=== PATIENT | female | born 1995 | race Caucasian/White ===

== ENCOUNTER 2024-11-17 05:26 | Observation (INO) ==
--- NOTE | 2024-11-08 14:45 | Anesthesiology Consultation ---
Date of Service November 08, 2024 Assessment & Plan (1) Encounter for pre-operative examination: - check urine test STAT am DOS. - Case discussed in detail with Dr. Lopez who advised patient is acceptable to proceed and no further evaluation or testing will be needed prior to surgery from his standpoint. - Per agency director on 11/08/24: No known infectious disease contacts, current infectious disease symptoms in past 10 days or COVID positive test result in the past 30 days. Chart Review Chart Review: Acceptable Risk for Surgery and Patient NOT seen in Pre Admission Testing History Surgery Operation Date: 11/17/24 07:00 Proposed Procedures p Total Laparoscopic Hysterectomy, Bilateral Salpingectomy and Cystoscopy, Possible Laparotomy - Al Mujica MD Height/Weight Height: 5 ft 4 in Weight: 56.699 kg Allergies Allergy/AdvReac Type Severity Reaction Status Date / Time latex Allergy Intermediate Blister/ Verified 11/08/24 14:00 bleeding acetaminophen [From Tylenol] Allergy Unknown Worsen Verified 11/08/24 13:59 symptoms Medications Home Medications Medication Instructions Recorded Confirmed Last Taken albuterol sulfate 90 mcg/actuation 2 puff inhalation DIRECTED PRN 01/26/20 11/08/24 Unknown aerosol inhaler Shortness Of Breath Or Wheezing doxycycline hyclate 50 mg capsule 100 mg PO DAILY 01/26/20 11/08/24 Unknown buspirone 15 mg tablet 15 mg PO BID 11/08/24 11/08/24 Unknown clobetasol 0.05 % topical cream 1 applic topical BID 11/08/24 11/08/24 Unknown dicyclomine 10 mg capsule 10 mg PO QID PRN Abdominal 11/08/24 11/08/24 Unknown Discomfort ibuprofen 800 mg tablet 800 mg PO Q6H PRN Pain 11/08/24 11/08/24 Unknown loratadine 10 mg tablet 10 mg PO DAILY PRN Congestion 11/08/24 11/08/24 Unknown mometasone 50 mcg/actuation nasal 2 spray intranasal DAILY 11/08/24 11/08/24 Unknown spray olopatadine 0.1 % eye drops 1 drp ophthalmic (eye) BID 11/08/24 11/08/24 Unknown ondansetron HCl 4 mg tablet 4 mg PO Q6H PRN Nausea 11/08/24 11/08/24 Unknown pantoprazole 40 mg tablet,delayed 40 mg PO QAM 11/08/24 11/08/24 Unknown release pseudoephedrine-ibuprofen 30 1 tab PO Q4H PRN Pain 11/08/24 11/08/24 Unknown mg-200 mg tablet (Advil Cold and Sinus) rizatriptan 10 mg tablet 10 mg PO UD PRN Migraine Headache 11/08/24 11/08/24 Unknown testosterone 1.62 % (20.25 mg/1.25 2 packet transdermal DAILY 11/08/24 11/08/24 Unknown gram) transdermal gel packet (AndroGel) Past Medical History Medical History GERD (gastroesophageal reflux disease) History of anemia Hx of seasonal allergies prn inh for this, not asthma Migraine Palpitations on occasion POTS (postural orthostatic tachycardia syndrome) "possible" no formal testing, pcp aware of symptoms of dizziness when going from sitting to standing Sleep apnea no formal testing, does have issues (on occasion) "gasping for air" in sleep Past Surgical History Surgical History No history of previous surgery Social History Smoking Status: Never smoker Do You Dip or Chew Tobacco: No Hx Alcohol Use: No Hx Substance Use: No substance use type: does not use
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
--- OUTSIDE RECORDS SUMMARY | 2024-11-17 05:54 | External Medical Summary | Summary of Care ---
Author Name Unknown Organization [facility] Address [address] [place] [address] Phone [phone] Care Team Providers Care General Office Worker Name Role Phone Ari Atkinson MD Primary Care Provider + Encounter Details Date Type Department Care Team (Late st Contact Info) Description 11/13/2024 Orders Only Outcomes Research Department [address] [place] [address] Megan Steward CHRA [employer] [facility] Other*[id number] Allergies Active Allergy Reactions Criticality Noted Date Comments Egg-Derived Products Low 02/10/2019 Upset stomach, no anaphylaxis Lactose 04/04/2019 Allergic to another ingredient in dairy products Latex 08/30/2023 Other Allergy (See Comments) Medium 04/08/2022 [place] Fragrances, grass Acetaminophen 02/10/2019 Feels makes his pain worse generally. documented as of this encounter (statuses as of 11/13/2024) Medications Loratadine 10 MG Oral Tablet (Claritin) [...] (stomach pain/cramps). For abdominal pain 120 Capsule 11 12/14/19 24 Active Ondansetron HCl 4 MG Oral Tablet (Zofran)Indication s:Abdominal pain, generalized Take 1 Tablet by mouth every 8 hours as needed for Nausea. 30 Tablet 5 12/14/19 24 Active Diclofenac Sodium 1 % External Gel (Voltaren)Indicati ons:Multiple joint pain Apply topically to affected area 4 times a day. Apply to knees. 4g. 300 g 12/14/19 24 Active Doxycycline Hyclate 100 MG Oral Capsule Take 1 Capsule by mouth in the morning. 30 Capsule 03/07/20 24 Active Rizatriptan Benzoate 10 MG Oral Tablet Disintegrating (Maxalt-ANDROID ARCHITECT) Take 1 Tablet by mouth as needed for Migraine. May repeat in 2 hours if needed 10 Tablet 05/18/20 24 Active busPIRone HCl 15 MG Oral Tablet (Buspar)Indication s:KERRI (generalized anxiety disorder) TAKE 1 TABLET BY MOUTH IN THE MORNING AND BEFORE BEDTIME 60 Tablet 5 06/01/20 24 Active Famotidine 20 MG Oral Tablet (Pepcid) Take 1 Tablet by mouth in the morning and 1 Tablet before bedtime. 60 Tablet 06/19/20 24 Active Additional Information Patient not taking.Reported on 10/30/2024 Pantoprazole Sodium 40 MG Oral Tablet Delayed Release (Protonix)Indicati ons:Gastroesophage al reflux disease without esophagitis Take 1 Tablet by mouth in the morning. 30 Tablet 11 06/20/20 24 Active Benzoyl Peroxide 10 % External LiquidIndications: Acne vulgaris Apply as needed daily to breakouts on face/upper body 148 g 3 07/17/20 24 Active Clindamycin Phosphate 1 % External Lotion Apply to face, chest and back twice a day 60 mL 07/17/20 24 Active Testosterone 20.25 MG/ACT (1.62%) Transdermal Gel (AndroGel Pump)Indications:F kkeka-ut-azay transgender person PLACE 2 PUMP TOPICALLY ON [...] the night before surgery 300 mL 10/30/19 25 Active documented as of this encounter (statuses as of 11/13/2024) Active Problems Problem Noted Date Diagnosed Date [...] of recurrent major depressive d isorder 02/10/2019 Igtfjb-ic-linr transgender person 02/10/2019 Well adult exam 02/10/2019 Overview (12/08/2023): 12/11 EMG RUE WNL 09/[address] Luiza Ayala. 04/10 -EMG RUE Normal study. There is no electrodiagnostic evidence of a median or ulnar neuropathy, polyneuropathy, plexopathy, or cervical radiculopathy in the right upper extremity. 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 No psychiatry. Had bad experiences with [place] [facility]. '23 stopped therapy [facility]. Left arm/leg mottled since , worse in cold, inc calf circ on left. Chronic rhinitis 08/11/2015 Depression with anxiety 08/11/2015 Malocclusion 07/21/2014 Deliberate self-cutting 07/21/2014 Generalized anxiety disorder 07/18/2014 Idiopathic scoliosis 05/05/2013 documented as of this encounter (statuses as of 11/13/2024) Resolved Problems Problem Noted Date Diagnosed Date [...] as of this encounter (statuses as of 11/13/2024) Immunizations Name Administration Dates Next Due COVID-19 mRNA, LNP-s, No Pre serve, 2-Dose Series ([employer]) 09/24/2021,12/28/2020,12/14/2020 COVID-19, MRNA-LNP, PF, 30 M CG/0.3 mL, 12 YRS AND ABOVE, IM (PFIZER-Comirnaty) 08/09/2024 DTaP Dipth/Tet/Acell Pertussis (Infanrix), Peds 07/06/2003,09/26/1998,01/07/1998,10/26 HIB PRP-OMP, 3 dose (Pedvax) 09/26/1998,01/07/19 98,1997 HPV Vaccine, 4-Valent 05/05/2013 HPV Vaccine, 9-Valent 07/23/2019,02/10/2019 Hepatitis A, Ped/Adol., 18 y ear and below, 2-Dose 07/18/2014,05/05/2013 Hepatitis B, 0-19 yrs 09/26/1998,1997,12/0 02/1997 IPV - Polio Virus Vaccine (Inact) 07/06/2003 [...] 08/22/2024 Does the household have a re gular source of income? 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 Not on file Not on f ile Not on file documented as of this encounter Plan of Treatment Upcoming Encounters Date Type Department Care Team (Late st Contact Info) Description 11/29/2024 4:00 PM EDT Office Visit Allergy[facility]ology [facility] [address] [place] [address] Paola Talley PA-C [address] [place] [address] 12/05/2024 4:40 PM EDT Office Visit [facility] [address] [place] [address] Ari Atkinson MD [address] [place] [address] 12/28/2024 11:45 AM EDT Office Visit Gynecology/Obstetrics [facility] [address] [place] [address] Al Mujica MD [address] [place] [address] 03/06/2025 5:40 PM EDT Office Visit [facility] [address] [place] [address] Ari Atkinson MD [address] [place] [address] 06/05/2025 5:40 PM EDT Office Visit [facility] [address] [place] [address] Ari Atkinson MD [address] [place] [address] 09/04/2025 5:40 PM EST Office Visit [facility] [address] [place] [address] Ari Atkinson MD [address] [place] [address] Scheduled Orders Name Type Priority Associated Diagnoses Orde r Schedule MYCODE SUBSEQUENT ADULT Lab Routine [facility] Other*[id number] Every 6 Months for 2 Occurrences starting 11/13/2024 until 12/03/2025 Health Maintenance Due Date Last Done Comments [...] Not on filedocumented as of this encounter Visit Diagnoses Diagnosis [facility] Other*[id number] documented in this encounter Care Teams General Office Worker Relationship Specialty Start Date End Date Ari Atkinson MD [address] [place] [address] PCP - General Family Medicine 02/10/19 documented as of this encounter
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
--- OUTSIDE RECORDS SUMMARY | 2024-11-17 05:55 | External Medical Summary | Summary of Care ---
Author Name Unknown Organization [facility] Address [address] [place] [address] Phone [phone] Care Team Providers Care Automotive Parts Clerk Name Role Phone Ari Atkinson MD Primary Care Provider + Encounter Details Date Type Department Care Team (Late st Contact Info) Description 10/09/2024 Population Health External Data Unspecified Department Allergies Active Allergy Reactions Criticality Noted Date Comments Egg-Derived Products Low 02/10/2019 Upset stomach, no anaphylaxis Lactose 04/04/2019 Allergic to another ingredient in dairy products Latex 08/30/2023 Other Allergy (See Comments) Medium 04/08/2022 [place] Fragrances, grass Acetaminophen 02/10/2019 Feels makes his pain worse generally. documented as of this encounter (statuses as of 10/09/2024) Medications Loratadine 10 MG Oral Tablet (Claritin) Take by mouth 1 Tablet daily as needed for Rhinitis. for allergies. 30 Tablet 11/05/19 22 Active Advil Allergy Sinus 2-30-200 [...] day. Apply to knees. 4g. 300 g 5 12/14/19 24 Active Doxycycline Hyclate 100 MG Oral Capsule Take 1 Capsule by mouth in the morning. 30 Capsule 11 03/07/20 24 Active Rizatriptan Benzoate 10 MG Oral Tablet Disintegrating (Maxalt-GROMMET MACHINE OPERATOR) Take 1 Tablet by mouth as needed [...] back twice a day 60 mL 3 07/17/20 24 Active Testosterone 20.25 MG/ACT (1.62%) Transdermal Gel (AndroGel Pump)Indications:F jixsv-[id number] transgender person PLACE 2 PUMP TOPICALLY ON [...] food for pain 30 Tablet 11 08/29/20 Active Olopatadine HCl 0.1 % Ophthalmic SolutionIndication s:Allergic conjunctivitis, bilateral Instill 1 Drop into both eyes 2 times a day as needed for Itching. In affected eye(s) for allergic eyes 5 mL 11 08/29/20 Active Mometasone Furoate 50 MCG/ACT Nasal Suspension Administer 2 Sprays into each nostril in the morning. 51 g 3 08/31/20 Active documented as of this encounter (statuses as of 10/09/2024) Active Problems Problem Noted Date Diagnosed Date [...] of recurrent major depressive d isorder 02/10/2019 [id number]-[id number] transgender person 02/10/2019 Well adult exam 02/10/2019 Overview (12/08/2023): 12/11 EMG RUE WNL 09/[address] Luiza Ayala. 04/10 -EMG RUE Normal study. There is no electrodiagnostic evidence of a median or ulnar neuropathy, polyneuropathy, plexopathy, or cervical radiculopathy in the right upper extremity. [facility] Counselor BIW. Case mgmt weekly. No psychiatry. Had bad experiences with [facility]. '23 stopped therapy [facility]. Left arm/leg mottled since , worse in cold, inc calf circ on left. 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 Not on file Not on f ile Not on file documented as of this encounter Plan of Treatment Upcoming Encounters Date Type Department Care Team (Late st Contact Info) Description 10/30/2024 3:45 PM EST Office Visit Gynecology/Obstetrics [facility] [address] [address] Al Mujica MD [address] [place] [address] 11/29/2024 4:00 PM EDT Office [facility] [place] [address] [place] [address] Paola Talley PA-C [address] [place] [address] 12/05/2024 4:40 PM EDT Office Visit Family Practice [facility] [address] [address] Ari Atkinson MD [address] [place] [address] 03/06/2025 5:40 PM EDT Office Visit [facility] [address] [place] [address] Ari Atkinson MD [address] [place] [address] 05/15/2025 3:30 PM EDT Office Visit Neurology [facility] [address] [place] [address] Ana Gilbert PA-C [address] [place] [address] 06/05/2025 5:40 PM EDT Office [facility] [place] [address] Ari Atkinson MD 132 [facility] [place] [address] 09/04/2025 5:40 PM EST Office [facility] [address] [facility] [place] [address] Ari Atkinson MD [address] [facility] [place] [address] Health Maintenance Due Date Last Done Comments [...] filedocumented as of this encounter Care Teams Automotive Parts Clerk Relationship Specialty Start Date End Date Ari Atkinson MD [address] [place] [address] PCP - General Family Medicine 02/10/19 documented as of this encounter
--- OUTSIDE RECORDS SUMMARY | 2024-11-17 05:55 | External Medical Summary | Summary of Care ---
Author Name Unknown Organization [facility] Address [address] [place] [address] Phone [phone] Care Team Providers Care Briquette Machine Operator Name Role Phone Ari Atkinson MD Primary Care Provider + Reason for Visit * Reason Onset Date Comments Appointment 10/05/2024 Post op Encounter Details Date Type Department Care Team (Late st Contact Info) Description 10/05/2024 Telephone Gynecology/Obstetrics [facility] [address] [place] [address] Al Mujica MD [address] [place] [address] Appointment (Post op) Allergies Active Allergy Reactions Criticality Noted Date Comments Egg-Derived Products Low 02/10/2019 Upset stomach, no anaphylaxis Lactose 04/04/2019 Allergic to another ingredient in dairy products Latex 08/30/2023 Other Allergy (See Comments) Medium 04/08/2022 [place] Fragrances, grass Acetaminophen 02/10/2019 Feels makes his pain worse generally. documented as of this encounter (statuses as of 10/05/2024) Medications Loratadine 10 MG Oral Tablet (Claritin) [...] Rizatriptan Benzoate 10 MG Oral Tablet Disintegrating (Maxalt-IT MANAGER) Take 1 Tablet by mouth as needed [...] 20.25 MG/ACT (1.62%) Transdermal Gel (AndroGel Pump)Indications:F ppocv-is-dcdv transgender person PLACE 2 PUMP TOPICALLY ON [...] spot on chest) 15 g 1 08/29/20 Active Ibuprofen 800 MG Oral Tablet (Motrin) [...] affected eye(s) for allergic eyes 5 mL 08/29/20 Active Mometasone Furoate 50 MCG/ACT Nasal Suspension Administer 2 Sprays into each nostril in the morning. 51 g 3 08/31/20 Active documented as of this encounter (statuses as of 10/05/2024) Active Problems Problem Noted Date Diagnosed Date [...] of recurrent major depressive d isorder 02/10/2019 Oycscy-nq-cdgn transgender person 02/10/2019 Well adult exam 02/10/2019 Overview (12/08/2023): 12/11 EMG RUE WNL 09/[address] Luiza Ayala. 04/10 -EMG RUE Normal study. There is no electrodiagnostic evidence of a median or ulnar neuropathy, polyneuropathy, plexopathy, or cervical radiculopathy in the right upper extremity. 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 No psychiatry. Had bad experiences with [facility]. ' stopped therapy [facility]. Left arm/leg mottled since , worse in cold, inc calf circ on left. Chronic rhinitis 08/11/2015 Depression with anxiety 08/11/2015 Malocclusion 07/21/2014 Deliberate self-cutting 07/21/2014 Generalized anxiety disorder 07/18/2014 Idiopathic scoliosis 05/05/2013 documented as of this encounter (statuses as of 10/05/2024) Resolved Problems Problem Noted Date Diagnosed Date [...] as of this encounter (statuses as of 10/05/2024) Immunizations Name Administration Dates Next Due COVID-19 mRNA, LNP-s, No Pre serve, 2-Dose Series ([place]) 09/24/2021,12/28/2020,12/14/2020 COVID-19, MRNA-LNP, PF, 30 M CG/0.3 mL, 12 YRS AND ABOVE, IM [facility] 08/09/2024 DTaP Dipth/Tet/Acell Pertussis (Infanrix), Peds 07/06/2003,09/26/1998,01/07/1998,10/26 [...] Job Start Date Job End Date [employer]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 Not on file Not on f ile Not on file documented as of this encounter Miscellaneous Notes * Telephone Encounter - Valerie Moeller OSA - 10/05/2024 10:42 AM EST I do not see an appointment that is cancelled besides the one that was immediately rescheduled withthe patient. Will talk to the patient when they are in for their pre-op. * Telephone Encounter - Bina Pandey OSA - 10/05/2024 10:17 AM EST Pt called to reschedule her canceled post op appt. Please call pt, nothing is searching until 12/25. Please advise. Thank you, documented in this encounter Plan of Treatment Upcoming Encounters Date Type Department Care Team (Late st Contact Info) Description 10/30/2024 3:45 PM EST Office Visit Gynecology/Obstetrics [facility] [address] [place] [address] Al Mujica MD [address] [place] [address] 11/29/2024 4:00 PM EDT Office Visit Allergy/Immunology [facility] [address] [facility] [place] [address] Paola Talley PA-C 200 [facility] [place] [address] 12/05/2024 3:15 PM EDT Office Visit Gynecology/Obstetrics [facility] [address] [place] [address] Al Mujica MD [address] [place] [address] 12/05/2024 4:40 PM EDT Office Visit [facility] [address] [place] [address] Ari Atkinson MD [address] [place] [address] 03/06/2025 5:40 PM EDT Office Visit [facility] [address] [place] [address] Ari Atkinson MD [address] [place] [address] 05/15/2025 3:30 PM EDT Office Visit Neurology [facility] [address] [place] [address] Ana Gilbert PA-C [address] [place] [address] 06/05/2025 5:40 PM EDT Office Visit [facility] [address] [facility] [place] [address] Ari Atkinson MD [address] [facility] [place] [address] 09/04/2025 5:40 PM EST Office Visit [facility] [address] [facility] [place] [address] Ari Atkinson MD [facility] [place] [address] Health Maintenance Due Date Last Done Comments [...] filedocumented as of this encounter Care Teams Briquette Machine Operator Relationship Specialty Start Date End Date Ari Atkinson MD [address] [place] [address] PCP - General Family Medicine 02/10/19 documented as of this encounter
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
--- OUTSIDE RECORDS SUMMARY | 2024-11-17 05:55 | External Medical Summary ---
Author Name Unknown Address Unknown Organization [id number]:[facility] - [address] [place] [address] Laboratory Report Ordering Provider Test Date Status GINGER BRANTLEY 10/30/2024 16:20:30 Final The above reference range is based on the legal sex of the patient only. Results should be interpreted together with patient's sex at , gender identity, and clinical context. Observation Date Value Abnormality Reference (Units ) Status Testosterone [Mass/volume] in Serum or Plasma 10/30/2024 16:20:30 347.9 Above high normal 2.9-48.0 (ng/dL) Final Performing Location [facility] - [address] [place] [address]
--- OUTSIDE RECORDS SUMMARY | 2024-11-17 05:55 | External Medical Summary | Summary of Care ---
Author Name Unknown Organization [facility] Address [address] [place] [address] Phone [phone] Care Team Providers Care Wood Boring Machine Operator Name Role Phone Ari Atkinson MD Primary Care Provider + Reason for Visit * Reason Onset Date Comments FYI 08/31/2024 Encounter Details Date Type Department Care Team (Late st Contact Info) Description 08/31/2024 Telephone Family Practice [facility] [address] [place] [address] Ari Atkinson MD [address] [place] [place] [address] FYI Allergies Active Allergy Reactions Criticality Noted Date Comments Egg-Derived Products Low 02/10/2019 Upset stomach, no anaphylaxis Lactose 04/04/2019 Allergic to another ingredient in dairy products Latex 08/30/2023 Other Allergy (See Comments) Medium 04/08/2022 [place] Fragrances, grass Acetaminophen 02/10/2019 Feels makes his [...] Rizatriptan Benzoate 10 MG Oral Tablet Disintegrating (Maxalt-BATTERY FILLER) Take 1 Tablet by mouth as needed [...] 20.25 MG/ACT (1.62%) Transdermal Gel (AndroGel Pump)Indications:F ocudv-se-vmob transgender person PLACE 2 PUMP TOPICALLY ON [...] of recurrent major depressive d isorder 02/10/2019 Ikndke-kg-cumq transgender person 02/10/2019 Well adult exam 02/10/2019 Overview (12/08/2023): 12/11 EMG RUE WNL 09/[address] Luiza Ayala. 04/10 -EMG RUE Normal study. There is no electrodiagnostic evidence of a median or ulnar neuropathy, polyneuropathy, plexopathy, or cervical radiculopathy in the right upper extremity. [facility] Counselor BIW. Case mgmt weekly. No psychiatry. Had bad experiences with [facility]. '23 stopped therapy [facility]. 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 Not on file Not on f ile Not on file documented as of this encounter Miscellaneous Notes * Telephone Encounter - Stephanie Calle OSA - 08/31/2024 1:03 PM EST pt called requesting to talk to office's delicatessen department manager regarding paperwork that he is going to chart picker. He states he has questions about it. Attempted to transfer to front maker lockstitch at the office, however was unsuccessful. Pt states his mom would be picking up the letter for him d/t transportation issues. He wanted to know if that is okay. He said mother's name is Domi Santiago and she will be stopping by the office in the next 2 hours. documented in this encounter Plan of Treatment Upcoming Encounters Date Type Department Care Team (Late st Contact Info) Description 08/31/2024 3:00 PM EST Office Visit Allergy[facility]ology [facility] [address] [place] [address] Bruce Freeman MD 200 [facility] [place] [address] 12/05/2024 4:40 PM EDT Office Visit [facility] [address] [place] [address] Ari Atkinson MD [address] [place] [address] 03/06/2025 5:40 PM EDT Office Visit [facility] [address] [place] [address] Ari Atkinson MD [address] [place] [address] 05/15/2025 3:30 PM EDT Office Visit Neurology [facility] [address] [facility] [place] [address] Ana Gilbert PA-C [address] [place] [address] 06/05/2025 5:40 PM EDT Office Visit [facility] [address] [address] Ari Atkinson MD [address] [place] [address] 09/04/2025 5:40 PM EST Office Visit [facility] [address] [place] [address] Ari Atkinson MD [address] [place] [address] Health Maintenance Due Date Last Done Comments [...] filedocumented as of this encounter Care Teams Wood Boring Machine Operator Relationship Specialty Start Date End Date Ari Atkinson MD [address] [place] [address] PCP - General Family Medicine 02/10/19 documented as of this encounter
--- OUTSIDE RECORDS SUMMARY | 2024-11-17 05:55 | External Medical Summary | Summary of Care ---
Author Name Unknown Organization [facility] Address [address] [place] [address] Phone [phone] Care Team Providers Care Dairy Farm Supervisor Name Role Phone Ari Atkinson MD Primary Care Provider + Reason for Visit * Reason Onset Date Comments Other 09/05/2024 Encounter Details Date Type Department Care Team (Late st Contact Info) Description 09/05/2024 Telephone Gynecology/Obstetrics [facility] [address] [place] [address] Services, Scheduling [address] [place] [address] Other Allergies Active Allergy Reactions Criticality Noted Date Comments Egg-Derived Products Low 02/10/2019 Upset stomach, no anaphylaxis Lactose 04/04/2019 Allergic to another ingredient in dairy products Latex 08/30/2023 Other Allergy (See Comments) Medium 04/08/2022 [place] Fragrances, grass Acetaminophen 02/10/2019 Feels makes his pain worse generally. documented as of this encounter (statuses as of 09/11/2024) Medications Loratadine 10 MG Oral Tablet (Claritin) [...] Rizatriptan Benzoate 10 MG Oral Tablet Disintegrating (Maxalt-HOME PLANNING CONSULTANT SALESPERSON) Take 1 Tablet by mouth as needed [...] 20.25 MG/ACT (1.62%) Transdermal Gel (AndroGel Pump)Indications:F zzwma-wl-ozni transgender person PLACE 2 PUMP TOPICALLY ON THE SKIN IN THE MORNING. APPLY TO SHOULDER, OR CHEST OR BACK 75 g 08/09/20 24 Active Albuterol Sulfate HFA 108 [...] as of this encounter (statuses as of 09/11/2024) Active Problems Problem Noted Date Diagnosed Date [...] of recurrent major depressive d isorder 02/10/2019 Tcxvlz-cz-rvhp transgender person 02/10/2019 Well adult exam 02/10/2019 Overview (12/08/2023): 12/11 EMG RUE WNL 09/[address] Luiza Ayala. 04/10 -EMG RUE Normal study. There is no electrodiagnostic evidence of a median or ulnar neuropathy, polyneuropathy, plexopathy, or cervical radiculopathy in the right upper extremity. [facility] Counselor BIW. Case mgmt weekly. No psychiatry. Had bad experiences with [facility]. '23 stopped therapy [facility]. Left arm/leg mottled since , worse in cold, inc calf circ on left. Chronic rhinitis 08/11/2015 Depression with anxiety 08/11/2015 Malocclusion 07/21/2014 Deliberate self-cutting 07/21/2014 Generalized anxiety disorder 07/18/2014 Idiopathic scoliosis 05/05/2013 documented as of this encounter (statuses as of 09/11/2024) Resolved Problems Problem Noted Date Diagnosed Date [...] as of this encounter (statuses as of 09/11/2024) Immunizations Name Administration Dates Next Due COVID-19 mRNA, LNP-s, No Pre serve, 2-Dose Series ([employer]) 09/24/2021,12/28/2020,12/14/2020 COVID-19, MRNA-LNP, PF, 30 M CG/0.3 mL, 12 YRS AND ABOVE, IM ([facility]) 08/09/2024 DTaP Dipth/Tet/Acell Pertussis (Infanrix), Peds 07/06/2003,09/26/1998,01/07/1998,10/26 [...] Job Start Date Job End Date [employer]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 Not on file Not on f ile Not on file documented as of this encounter Miscellaneous Notes * Telephone Encounter - Lucia Pryor OSA - 09/11/2024 2:47 PM EST Pt scheduled. * Telephone Encounter - Diandra Alaniz OSA - 09/05/2024 1:56 PM EST Pt called stating they would like to receive a call back from OR whirley operator in regards to completinga hysterectomy. Pt was to be contacted to have this scheduled but still has not heard from whirley operator at this time. Pt was connected to OR line to leave a voicemail for a call back. Please contact patient at [phone] Thank you, Diandra Alaniz [employer] Secretary [facility] Scheduling documented in this encounter Plan of Treatment Upcoming Encounters Date Type Department Care Team (Late st Contact Info) Description 10/30/2024 3:45 PM EST Office Visit Gynecology/Obstetrics [facility] [address] [address] Al Mujica MD [address] [place] [address] 11/29/2024 4:00 PM EDT Office Visit Allergy/Immunology [facility] [address] [place] [address] Paola Talley PA-C [address] [place] [address] 12/05/2024 3:15 PM EDT Office Visit Gynecology/Obstetrics [facility] [address] [place] [address] Al Mujica MD [address] [place] [address] 12/05/2024 4:40 PM EDT Office Visit [facility] [address] [place] [address] Ari Atkinson MD [address] [place] [address] 03/06/2025 5:40 PM EDT Office Visit [facility] [address] [place] [address] Ari Atkinson MD [address] [place] [address] 05/15/2025 3:30 PM EDT Office Visit Neurology [facility] [address] [place] [address] Ana Gilbert PA-C [address] [place] [address] 06/05/2025 5:40 PM EDT Office Visit [facility] [address] [place] [address] Ari Atkinson MD [address] [place] [address] 09/04/2025 5:40 PM EST Office Visit [facility] [address] [place] [address] Ari Atkinson MD [address] [place] [address] Health Maintenance Due Date Last Done Comments Hepatitis C Screening 2015 Pneumococcal Vaccine: Pediat rics (0 to 5 Years) and At-Risk Patients (6 to 64 Years) (1 of 2 - PCV) 2016 [...] filedocumented as of this encounter Care Teams Dairy Farm Supervisor Relationship Specialty Start Date End Date Ari Atkinson MD [address] [place] [address] PCP - General Family Medicine 02/10/19 documented as of this encounter
--- OUTSIDE RECORDS SUMMARY | 2024-11-17 05:55 | External Medical Summary | Summary of Care ---
Author Name Unknown Organization [facility] Address [address] [place] [address] Phone [phone] Care Team Providers Care Expanding Machine Operator Name Role Phone Ari Atkinson MD Primary Care Provider + Reason for Visit * Reason Comments Outpatient Testing Encounter Details Date Type Department Care Team (Late st Contact Info) Description 10/30/2024 4:30 PM EST Laboratory [facility] [address] [place] [address] [facility] [address] [place] [address] Pdzcvq-le-hxtc transgender person Allergies Active Allergy Reactions Criticality Noted Date Comments Egg-Derived Products Low 02/10/2019 Upset stomach, no anaphylaxis Lactose 04/04/2019 Allergic to another ingredient in dairy products Latex 08/30/2023 Other Allergy (See Comments) Medium 04/08/2022 [place] Fragrances, grass Acetaminophen 02/10/2019 Feels makes his [...] Rizatriptan Benzoate 10 MG Oral Tablet Disintegrating (Maxalt-CHAIN MAKER LOOM CONTROL) Take 1 Tablet by mouth as needed [...] 20.25 MG/ACT (1.62%) Transdermal Gel (AndroGel Pump)Indications:F pogld-is-okqn transgender person PLACE 2 PUMP TOPICALLY ON [...] of recurrent major depressive d isorder 02/10/2019 Dzovdj-ru-odds transgender person 02/10/2019 Well adult exam 02/10/2019 Overview (12/08/2023): 12/11 EMG RUE WNL 09/[address] Luiza Ayala. 04/10 -EMG RUE Normal study. There is no electrodiagnostic evidence of a median or ulnar neuropathy, polyneuropathy, plexopathy, or cervical radiculopathy in the right upper extremity. 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 No psychiatry. Had bad experiences with [facility]. '23 stopped therapy [facility]. 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 Not on file Not on f ile Not on file documented as of this encounter Plan of Treatment Upcoming Encounters Date Type Department Care Team (Late st Contact Info) Description 11/29/2024 4:00 PM EDT Office Visit Allergy/Immunology [facility] [address] [facility] [place] [address] Paola Talley PA-C [address] [facility] [address] [place] [address] 12/05/2024 4:40 PM EDT Office Visit [facility] [address] [place] [address] Ari Atkinson MD [address] [place] [address] 12/25/2024 3:45 PM EDT Office Visit Gynecology/Obstetrics [facility] [address] [place] [address] Al Mujica MD 132 [facility] [place] [address] 03/06/2025 5:40 PM EDT Office Visit [facility] [address] [place] [address] Ari Atkinson MD 132 [facility] [place] [address] 05/15/2025 3:30 PM EDT Office Visit Neurology [facility] [address] [place] [address] Ana Gilbert PA-C [address] [facility] [place] [address] 06/05/2025 5:40 PM EDT Office Visit [facility] [address] [place] [address] Ari Atkinson MD [address] [facility] [place] [address] 09/04/2025 5:40 PM EST Office Visit [facility] [address] [place] [address] Ari Atkinson MD [address] [place] [address] Health Maintenance Due Date Last Done Comments [...] Not on filedocumented as of this encounter Procedures Procedure Name Priority Date/Time Associated Diagnosis Comments ANEMIA REFLEX CHEMISTRY HOLD Routine 10/30/2024 4:20 PM EST Oxwyqi-op-hbxk transgender person ANEMIA CBC Routine 10/30/2024 4:20 PM EST Okuvne-ey-owax transgender person DIFFERENTIAL, AUTOMATED Routine 10/30/2024 4:20 PM EST Gbepgl-kw-fbaf transgender person DIFFERENTIAL, AUTOMATED Routine 10/30/2024 4:20 PM EST Fvaxyc-qc-yvmg transgender person TESTOSTERONE, TOTAL Routine 10/30/2024 4 :20 PM EST Clzycn-db-uudv transgender person documented in this encounter Results * ANEMIA REFLEX CHEMISTRY HOLD (10/30/2024 4:20 PM EST) Blood Venous blood specimen / Unknown Venipuncture / Unknown 10/30/2024 4:20 PM EST 10/30/2024 4:20 PM EST us Ari Atkinson MD LAB BLOOD ORDERABLES Fin al Result [facility] [address] [place] [address] * DIFFERENTIAL, AUTOMATED (10/30/2024 4:20 PM EST) WBC 6.06 4.00 - 10.80 K/uL 10/31/2024 12:06 AM EST [facility] Neutrophils % 62.9 40.0 - 75.0 % 10/31/2024 12:06 AM EST [facility] Lymphocytes % 29.2 18.0 - 42.0 % 10/31/2024 12:06 AM EST [facility] Monocytes % 6.4 1.0 - 11.0 % 10/31/2024 12:06 AM EST [facility] Eosinophils % 0.5 0.0 - 6.0 % 10/31/2024 12:06 AM EST [facility] Basophils % 0.5 0.0 - 2.0 % 10/31/2024 12:06 AM EST [facility] Immature Granulocytes % 0.5 0.0 - 2.0 % 10/31/2024 12:06 AM EST [facility] Absolute Neutrophils 3.81 1.80 - 7.70 K/uL 10/31/2024 12:06 AM EST [facility] Absolute Lymphocytes 1.77 1.00 - 4.80 K/ul 10/31/2024 12:06 AM EST [facility] Absolute Monocytes 0.39 0.00 - 1.10 K/uL 10/31/2024 12:06 AM EST [facility] Absolute Eosinophils 0.03 0.00 - 0.70 K/uL 10/31/2024 12:06 AM EST [facility] Absolute Basophils 0.03 0.00 - 0.20 K/uL 10/31/2024 12:06 AM EST [facility] Absolute Immature Granulocytes 0.03 0.00 - 0.20 K/uL 10/31/2024 12:06 AM EST [facility] Blood Venous blood specimen / Unknown Venipuncture / Unknown 10/30/2024 4:20 PM EST 10/30/2024 4:20 PM EST us Ari Atkinson MD LAB BLOOD ORDERABLES Fin al Result [facility] [address] [place] [address] * (ABNORMAL) ANEMIA CBC (10/30/2024 4:20 PM EST) WBC 6.06 4.00 - 10.80 K/uL 10/31/2024 12:06 AM EST [facility] RBC 4.92 3.85 - 5.15 M/uL 10/31/2024 12:06 AM EST [facility] HGB 15.1 12.0 - 15.3 g/dL 10/31/2024 12:06 AM EST [facility] Comment: Anemia reflex testing triggers on a HGB < 12.0 for Females and HGB < 13.0 for Males in accordance with the WHO Anemia Guidelines Anemia reflex testing triggers on a HGB < 12.0 for Females and HGB < 13.0 for Males in accordance with the WHO Anemia Guidelines HCT 45.4(H) 36.0 - 45.2 % 10/31/2024 12:06 AM EST [facility] MCV 92.3 81.5 - 97.5 fL 10/31/2024 12:06 AM EST [facility] MCH 30.7 27.0 - 34.0 pg 10/31/2024 12:06 AM EST [facility] MCHC 33.3 32.0 - 36.0 g/dL 10/31/2024 12:06 AM EST [facility] RDW 11.8 11.5 - 15.5 % 10/31/2024 12:06 AM EST [facility] PLT 226 140 - 400 K/uL 10/31/2024 12:06 AM EST [facility] MPV 11.2 6.6 - 11.1 fL 10/31/2024 12:06 AM EST [facility] nRBCs 0 <=0 /100 WBCs 10/31/2024 12:06 AM EST [facility] Blood Venous blood specimen / Unknown Venipuncture / Unknown 10/30/2024 4:20 PM EST 10/30/2024 4:20 PM EST Ari Atkinson MD LAB BLOOD ORDERABLES Fin al Result LABORATORY [facility] [address] [place] [address] * (ABNORMAL) TESTOSTERONE, TOTAL (10/30/2024 4:20 PM EST) Testosterone, Total 347.9(H) 2.9 - 48.0 ng/dL 10/31/2024 2:11 AM EST [facility] Blood Venous blood specimen / Unknown Venipuncture / Unknown 10/30/2024 4:20 PM EST 10/30/2024 4:20 PM EST Narrative [facility] - 10/31/2024 2:11 AM EST The above reference range is based on the legal sex of the patient only. Results should be interpreted together with patient's sex at , gender identity, and clinical context. Ari Atkinson MD LAB BLOOD ORDERABLES Fin al Result Performing Organization Address City/[facility]/ZIP Co de Phone Number LABORATORY [facility] [address] [place] [address] documented in this encounter Visit Diagnoses Diagnosis Vlrius-ep-fxba transgender person documented in this encounter Care Teams Expanding Machine Operator Relationship Specialty Start Date End Date Ari Atkinson MD [address] [place] [address] PCP - General Family Medicine 02/10/19 documented as of this encounter
--- OUTSIDE RECORDS SUMMARY | 2024-11-17 05:55 | External Medical Summary ---
Author Name Unknown Address Unknown Organization [id number]:LABORATORY [facility] - [address] [place] [id number] Laboratory Report Ordering Provider Test Date Status GINGER BRANTLEY 10/30/2024 16:20:30 Final Observation Date Value Abnormality Reference (Units ) Status WBC, Total 10/30/2024 16:20:30 6.06 4.00-10.8 0 (K/uL) Final RBC 10/30/2024 16:20:30 4.92 3.85-5.15 (M/uL) Final Hemoglobin 10/30/2024 16:20:30 15.1 12.0-15.3 (g/dL) Final Anemia reflex testing trigge rs on a HGB < 12.0 for Females and HGB < 13.0 for Males in accordance with the WHO Anemia Guidelines
Anemia reflex testing triggers on a HGB < 12.0 for Females and HGB < 13.0 for Males in accordance with the WHO Anemia Guidelines HCT 10/30/2024 16:20:30 45.4 Above hi gh normal 36.0-45.2 (%) Final MCV 10/30/2024 16:20:30 92.3 81.5-97.5 (fL) Final MCH 10/30/2024 16:20:30 30.7 27.0-34.0 (pg) Final MCHC 10/30/2024 16:20:30 33.3 32.0-36.0 (g/dL) Final RDW 10/30/2024 16:20:30 11.8 11.5-15.5 (%) Final Platelets 10/30/2024 16:20:30 226 140-400 (K /uL) Final MPV 10/30/2024 16:20:30 11.2 6.6-11.1 ( fL) Final Nucleated erythrocytes/100 leukocytes [Ratio] in Blood by Automated count 10/30/2024 16:20:30 0 <=0 (/100 WBCs) Final Performing Location LABOR[facility]ORY [facility] - [address] [place] [facility] [address]
--- OUTSIDE RECORDS SUMMARY | 2024-11-17 05:55 | External Medical Summary | Summary of Care ---
Author Name Unknown Organization [facility] Address [address] [place] [address] Phone [phone] Care Team Providers Care Pulverizer Feeder Name Role Phone Ari Miles MD Primary Care Provider + Reason for Visit * Reason Comments Allergy Return Encounter Details Date Type Department Care Team (Late st Contact Info) Description 08/31/2024 3:00 PM EST Office Visit Allergy/Immunology [facility] [place] [address] [facility] [place] [address] Bruce Freeman MD [address] [place] [address] Intermittent asthma with reliever use up to twice per week, uncomplicated*; Migraine without status migrainosus, not intractable, unspecified migraine type; Rhinitis, nonallergic Allergies Active Allergy Reactions Criticality Noted Date Comments Egg-Derived Products Low 02/10/2019 Upset stomach, no anaphylaxis Lactose 04/04/2019 Allergic to another ingredient in dairy products Latex 08/30/2023 Other Allergy (See Comments) Medium 04/08/2022 [place] Fragrances, grass Acetaminophen 02/10/2019 Feels makes his pain worse generally. documented as of this encounter (statuses as of 09/01/2024) Medications Loratadine 10 MG Oral Tablet (Claritin) [...] Rizatriptan Benzoate 10 MG Oral Tablet Disintegrating (Maxalt-COMPUTER SYSTEM TECHNICIAN) Take 1 Tablet by mouth as needed [...] 20.25 MG/ACT (1.62%) Transdermal Gel (AndroGel Pump)Indications:F ktxlx-kh-dhsk transgender person PLACE 2 PUMP TOPICALLY ON [...] as of this encounter (statuses as of 09/01/2024) Active Problems Problem Noted Date Diagnosed Date [...] of recurrent major depressive d isorder 02/10/2019 Xzjvsi-gk-lphi transgender person 02/10/2019 Well adult exam 02/10/2019 Overview (12/08/2023): 12/11 EMG RUE WNL 09/[address] Luiza Ayala. 04/10 -EMG RUE Normal study. There is no electrodiagnostic evidence of a median or ulnar neuropathy, polyneuropathy, plexopathy, or cervical radiculopathy in the right upper extremity. 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 No psychiatry. Had bad experiences with [facility]. '23 stopped therapy [facility]. Left arm/leg mottled since , worse in cold, inc calf circ on left. Chronic rhinitis 08/11/2015 Depression with anxiety 08/11/2015 Malocclusion 07/21/2014 Deliberate self-cutting 07/21/2014 Generalized anxiety disorder 07/18/2014 Idiopathic scoliosis 05/05/2013 documented as of this encounter (statuses as of 09/01/2024) Resolved Problems Problem Noted Date Diagnosed Date [...] as of this encounter (statuses as of 09/01/2024) Immunizations Name Administration Dates Next Due COVID-19 mRNA, LNP-s, No Pre serve, 2-Dose Series ([employer]) 09/24/2021,12/28/2020,12/14/2020 COVID-19, MRNA-LNP, PF, 30 M CG/0.3 [...] No 08/22/2024 Does the household have a [facility] source of income? 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 Not on file Not [...] 11/05/2019 Chronic pain of both knees 10/18/2019 Zipohi-lv-bgsd transgender person 02/10/2019 Food insecurity 03/13/2019 Generalized [...] Advil Allergy Sinus 2-30-200 MG Oral Tablet (Thhzjvtlixvhduvy-HFC-Xdbraagpy) Take by mouth. 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 Occupation: 2023 thnking about [...] w/mom in past, dad. 03/12 Moved into [employer]. Compass. Social Needs Financial Resource Strain: Low Risk [...] Stability Do you currently live in a usp or have no steady place to sleep [...] but typically works within different divisions of [employer]. Within his home, there are no pets. [...] above.) PCP: ARI MILES [address] [address] [phone] documented in this encounter Nursing Notes * [...] Office Visit Allergy/Immunology [facility] [address] [facility] [place] [address] Paola Talley PA-C [address] [facility] [place] [address] 12/05/2024 4:40 PM EDT Office Visit [facility] [address] [address] Ari Miles MD [address] [address] 03/06/2025 5:40 PM EDT Office Visit [facility] [address] [address] Ari Miles MD [address] [place] [address] 05/15/2025 3:30 PM EDT Office Visit Neurology [facility] [address] [facility] [place] [address] Ana Gilbert PA-C [address] [address] 06/05/2025 5:40 PM EDT Office Visit [facility] [address] [place] [address] Ari Miles MD [address] [place] [address] 09/04/2025 5:40 PM EST Office Visit [facility] [address] [place] [address] Ari Miles MD [address] [place] [address] Health Maintenance Due Date Last Done Comments [...] Procedure Name Priority Date/Time Associated Diagnosis Comments ALLERGY SKIN TESTS, PERC W/PHYSICIAN INTERP Routine 09/01/2024 Intermittent asthma with reliever use up to twice per week, uncomplicated Rhinitis, nonallergic documented in this encounter Results * ALLERGY SKIN TESTS, PERC W/PHYSICIAN INTERP (09/01/2024) mite mix skin test UF Dog Skin Test 0/0 mm Comment:perc cat skin test 0/0 0 - 0 mm Comment:perc Alternaria SKin Test 0/0 0 - 0 mm Comment:perc Common [place] Mix Skin Test aspergillus Skin Test 0/0 0 - 0 mm Comment:perc AUREOB (PULLARIA) cladosporium Skin Test penicillium skin test 0/0 0 - 0 mm Comment:perc helminthosporium skin test 0/0 0 - 0 mm Comment:perc pigweed SKin Test fields's quarter Skin Test cocklebur skin test salvadorean plantain skin test 0/0 0 - 0 mm Comment:perc kate skin test ragweed skin test 0/0 0 - 0 mm Comment:perc, ragweed short tree mix skin test 0/0 0 - 0 mm Comment:perc, tree mix #11 grass mix skin test negative control skin test 0/0 0 - 0 mm Comment:perc histamine skin test 5/40 0 - 0 mm Comment:perc maple skin test oak Skin test Mugwort Skin Test birch SKin Test 0/0 0 - 0 mm Comment:perc hickory skin test OTHER 0/0 mm Comment:perc, cedar mountain OTHER 0/0 mm Comment:perc, mulberry mix OTHER 0/0 mm Comment:perc, nicole grass OTHER 0/0 mm Comment:perc, chilango grass OTHER 0/0 mm Comment:perc, weed mix 2630 OTHER 0/0 mm Comment:perc, Hormodendrum c ladosporioides OTHER 0/0 mm Comment:perc, DF OTHER 0/0 mm Comment:masha, DP Bruce Freeman MD MEDICINE Final Res ult documented in this encounter Visit Diagnoses Diagnosis Intermittent asthma with reliever use up to twice per week, uncomplicated- Primary Migraine without status migrainosus, not intractable, unspecified migraine type Rhinitis, nonallergic Chronic rhinitis documented in this encounter Care Teams Pulverizer Feeder Relationship Specialty Start Date End Date Ari Miles MD [address] [place] [address] PCP - General Family Medicine 02/10/19 documented as of this encounter"
--- OUTSIDE RECORDS SUMMARY | 2024-11-17 05:55 | External Medical Summary ---
Author Name Unknown Address Unknown Organization [id number]:[facility] [place] [address] [facility] [address] Laboratory Report Ordering Provider Test Date Status GINGER BRANTLEY 10/30/2024 16:20:30 Final Observation Date Value Abnormality Reference (Units ) Status SYNC LEUKOCYTES IN BLOOD BY AUTOMATED COUNT 10/30/2024 16:20:30 6.06 4.00-10.80 (K/uL) Final Segs 10/30/2024 16:20:30 62.9 40.0-75.0 (%) Final Lymphs % 10/30/2024 16:20:30 29.2 18.0-42.0 (%) Final Monos 10/30/2024 16:20:30 6.4 1.0-11.0 (%) Final Eosinophils 10/30/2024 16:20:30 0.5 0.0-6.0 (%) Final Basos 10/30/2024 16:20:30 0.5 0.0-2.0 (%) Final Immature Granulocyte, Percent 10/30/2024 16:20:30 0.5 0.0-2.0 (%) Final Absolute Segs 10/30/2024 16:20:30 3.81 1.80-7.70 (K/uL) Final Lymphs, absolute 10/30/2024 16:20:30 1.77 1.00-4.80 (K/ul) Final Monos, Abs 10/30/2024 16:20:30 0.39 0.00-1.10 (K/uL) Final Eos, Abs 10/30/2024 16:20:30 0.03 0.00-0.70 (K/uL) Final Basos, Abs 10/30/2024 16:20:30 0.03 0.00-0.20 (K/uL) Final Immature Granulocytes, Number 10/30/2024 16:20:30 0.03 0.00-0.20 (K/uL) Final Performing Location [facility] [place] [address] [facility] [address]
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
--- OUTSIDE RECORDS SUMMARY | 2024-11-17 05:56 | External Medical Summary | Summary of Care ---
Author Name Unknown Organization [facility] Address [address] [place] [address] Phone [phone] Care Team Providers Care Psychology Teacher Name Role Phone Ari Atkinson MD Primary Care Provider + Reason for Visit * Reason Comments Re-Check Acne - feels like th e Doxy and Clindamycin ointment is helping on chest. But was unable to potato picker the BP and Clindamycin gel - states pharmacy never received and if they did they never notified him that it was there. Encounter Details Date Type Department Care Team (Late st Contact Info) Description 07/17/2024 3:30 PM EDT Office Visit Dermatology, Eli Gutierrez [address] [place] [address] Latanya Browning PA-C [address] [id number] Acne vulgaris* Allergies Active Allergy Reactions Criticality Noted Date Comments Egg-Derived Products Low 02/10/2019 Upset stomach, no anaphylaxis Lactose 04/04/2019 Allergic to another ingredient in dairy products Latex 08/30/2023 Other Allergy (See Comments) Medium 04/08/2022 [place] Fragrances, grass Acetaminophen 02/10/2019 Feels makes his pain worse generally. documented as of this encounter (statuses as of 07/19/2024) Medications Medication Sig Dispensed Refills Start Date End Date Status Loratadine 10 MG Oral Tablet (Claritin) Take by mouth 1 Tablet daily as needed for Rhinitis. for allergies. 30 Tablet 11 11/05/2021 Active Advil Allergy Sinus 2-30-200 MG Oral Tablet (Chlorpheniramine-P SE-Ibuprofen) Take by mouth. Active Albuterol Sulfate HFA 108 (90 Base) MCG/ACT Inhalation Aerosol Solution Inhale 2 Puffs by mouth every 6 hours as needed for Cough or Wheezing. 18 g 12/15/2022 Active Olopatadine HCl 0.1 % Ophthalmic SolutionIndications :Allergic conjunctivitis, bilateral Instill 1 Drop into both eyes 2 times a day as needed for Itching. In affected eye(s) for allergic eyes 5 mL 03/16/2023 Active Ibuprofen 800 MG Oral Tablet (Motrin)Indications :Spotting Take 1 Tablet by mouth 3 times a day as needed for Other (1 hour before activity). with food for pain 30 Tablet 03/16/2023 Active Dicyclomine HCl 10 MG Oral Capsule (Bentyl)Indications :Abdominal pain, generalized Take 1 Capsule by mouth 4 times a day as needed (stomach pain/cramps). For abdominal pain 120 Capsule 12/14/2023 Active Ondansetron HCl 4 MG Oral Tablet (Zofran)Indications :Abdominal pain, generalized Take 1 Tablet by mouth every 8 hours as needed for Nausea. 30 Tablet 12/14/2023 Active Diclofenac Sodium 1 % External Gel (Voltaren)Indicatio ns:Multiple joint pain Apply topically to affected area 4 times a day. Apply to knees. 4g. 300 g 12/14/2023 Active Doxycycline Hyclate 100 MG Oral Capsule Take 1 Capsule by mouth in the morning. 30 Capsule 03/07/2024 Active Testosterone 20.25 MG/ACT (1.62%) Transdermal Gel (AndroGel Pump)Indications:Fe [id number] transgender person PLACE 3 PUMP TOPICALLY ON THE SKIN IN THE MORNING. APPLY TO SHOULDER, OR CHEST OR BACK... 75 g 05/12/2024 Active Clobetasol Propionate 0.05 % External Ointment (Temovate)Indicatio ns:Cystic acne Apply topically to affected area 2 times a day. To affected area for up to two weeks. (The red swollen jelly-like acne spot on chest) 15 g 05/14/2024 Active Rizatriptan Benzoate 10 MG Oral Tablet Disintegrating (Maxalt-MOBILE PATROL OFFICER) Take 1 Tablet by mouth as needed for Migraine. May repeat in 2 hours if needed 10 Tablet 5 05/18/2024 Active busPIRone HCl 15 MG Oral Tablet (Buspar)Indications :KERRI (generalized anxiety disorder) TAKE 1 TABLET BY MOUTH IN THE MORNING AND BEFORE BEDTIME 60 Tablet 5 06/01/2024 Active Famotidine 20 MG Oral Tablet (Pepcid) Take 1 Tablet by mouth in the morning and 1 Tablet before bedtime. 60 Tablet 06/19/2024 Active Pantoprazole Sodium 40 MG Oral Tablet Delayed Release (Protonix)Indicatio ns:Gastroesophageal reflux disease without esophagitis Take 1 Tablet by mouth in the morning. 30 Tablet 11 06/20/2024 Active Benzoyl Peroxide 10 % External LiquidIndications:A cne vulgaris Apply as needed daily to breakouts on face/upper body 148 g 3 07/17/2024 Active Clindamycin Phosphate 1 % External Lotion Apply to face, chest and back twice a day 60 mL 3 07/17/2024 Active Benzoyl Peroxide 10 % External LiquidIndications:A cne vulgaris Apply as needed daily to breakouts on face/upper body 148 g 3 05/26/2023 4 Discontinue d(Refill) Clindamycin Phosphate 1 % External GelIndications:Acne vulgaris Apply to acne up to twice daily as needed 60 g 1 08/19/2023 4 Discontinue d(Patient preference/ discontinua tion) documented as of this encounter (statuses as of 07/19/2024) Active Problems Problem Noted Date Diagnosed Date [...] of recurrent major depressive d isorder 02/10/2019 [id number]-[id number] transgender person 02/10/2019 Well adult exam 02/10/2019 Overview: 12/11 EMG RUE WNL 09/[address] Luiza Ayala. 04/10 -EMG RUE Normal study. There is no electrodiagnostic evidence of a median or ulnar neuropathy, polyneuropathy, plexopathy, or cervical radiculopathy in the right upper extremity. 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 No psychiatry. Had bad experiences with [place] [facility]. ' stopped therapy [facility]. Left arm/leg mottled since , worse in cold, inc calf circ on left. Chronic rhinitis 08/11/2015 Depression with anxiety 08/11/2015 Malocclusion 07/21/2014 Deliberate self-cutting 07/21/2014 Generalized anxiety disorder 07/18/2014 Idiopathic scoliosis 05/05/2013 documented as of this encounter (statuses as of 07/19/2024) Resolved Problems Problem Noted Date Diagnosed Date [...] as of this encounter (statuses as of 07/19/2024) Immunizations Name Administration Dates Next Due COVID-19 [...] Date Recorded PHQ Adult Total Score 10 06/06/2024 Hunger Vital Sign Answer Date Recorded Within [...] ages 0-17 years) Not on file 05/11/2024 Sex and Gender Information Value Date Recorded Sex Assigned at Choose not to disclose 4:07 PM EDT Gender Identity Transgender Male 02/10/2019 10:1 7 AM EDT Sexual Orientation [place] 03/13/2019 11 :02 AM EDT Sexual Orientation demisexual. 03/13/2019 11 :02 AM EDT Job Start Date Occupation Industry Not on file Not on file Not on file documented as of this encounter Patient Instructions * Patient Instructions* Latanya Browning PA-C - 07/17/2024 3:45 PM EDT Skin Care Regimen Morning: Wash with salicylic acid wash (cerave brand) Vitamin C serum (Timeless 10%) Clindamycin lotion Sunscreen Evening Wash with benzoyl peroxide in shower Clindamycin lotion Moisturizer- Cerave nightly cream, Cetaphil moisturizer, Vanicream daily lotion, Neutrogena hydroboost extra dry skin Once a week apply glycol acid toner- The Ordinary, Lucie's Choice, The [employer] List documented in this encounter Progress Notes * Joslyn Kaplan MD - 07/19/2024 12:38 PM EDT I have seen and examined the patient via teledermatology review of chart note and photos with Latanya Browning PA-C. I have reviewed and agree with the assessment and plan. Joslyn Kaplan MD * Latanya Browning PA-C - 07/17/2024 3:21 PM EDT SUBJECTIVE: CC: FU cystic acne HPI: Linda Santiago is a 28 year old adult who is an established patient seen for acne. Patient last visit on 05/16/2024. Goes by [facility]. Struggling with acne for a long time. Tried Doxycycline, Minocycline (couldn't tolerate), BPO wash, tretinoin, clindamycin lotion. Discussed isotretinoin but never pursued. Saw last visit open bleeding spot on mid chest (present 4-6 weeks(. Would start to heal and then he would bump it open again. +significantly bleeds. Ask-A-Doc to Dr. Meraz for stubborn area on chest- recommended Clobetasol ointment and mupirocin BID x 1 week to help heal granulated area. He picked up prescriptions but never started. Also would like to discuss acne overall. He is aware likely related to testosterone. Located on face, chest, shoulders, back. Last visit he wanted to pursue clobetasol and mupi rocin with duoderm to chest to try to heal over ILK. We also discussed isotretinoin but he needed to call [employer] to re-activate his account (problem re-activating it on my end). Female transitioningto male. On testosterone therapy. Regarding chest- much improved with mupirocin ointment and clobetasol ointment. All open areas haveresolved. Very happy. Regarding acne. Taking Doxycycline 100 mg daily (BID with flares) from PCP. We discussed isotretinoin again but he is planning to have a hysterectomy in near future and would prefer to wait until after procedure to start medication. Would like to discuss good skin care regimen. REVIEW OF SYSTEMS: See HPI- all other findings negative Constitutional: (-) fever, chills, sweats, weight loss Cardiovascular: (-) lower extremity edema Skin: (-) no rash or new or changing moles or skin lesions MEDICA TIONS: Current Outpatient Medications Medication Sig Dispense Refill Loratadine 10 MG Oral Tablet (Claritin) Take by mouth 1 Tablet daily as needed for Rhinitis. for allergies. 30 Tablet 11 Advil Allergy Sinus 2-30-200 MG Oral Tablet (Xtbljukcmoatwfoy-APN-Utxpchesa) Take by mouth. Albuterol Sulfate HFA 108 [...] Rizatriptan Benzoate 10 MG Oral Tablet Disintegrating (Maxalt-MOBILE PATROL OFFICER) Take 1 Tablet by mouth as neededfor [...] No current facility-administered medications for this visit. ALLERG Y: Other allergy (see comments), Lactose, Latex, Tylenol [acetaminophen], and Egg- derived products OBJECT JORDAN: GEN: Healthy, alert, no distress, appears oriented, pleasant, and cooperative. PSYCH: Appropriate mood and affect, alert SKIN: Detailed exam of face, trunk was completed and are within normal limits with the following exceptions: 1. Healing scars and comedones on chest; Inflammatory papules, pustules, scarring (including keloidscars) on trunk and face Acne Vulgaris- scarring, severe -Chest doing very well. Continue Clobetasol ointment and mupirocin ointment PRN for flares. -Continue Doxycycline 100 mg daily (BID with flares). -Add BPO wash in the shower. He feels salicylic acid with BPO wash helps best. Will have him do BPOat night and salicyclic acid wash in the AM. -Would like to incorporate vitamin c and glycolic acid toner (he has used daily in past and felt helped). Recommended Vitamin C serum QAM and sunscreen over top. Glycolic acid should be used 1-2x/week as opposed to daily. Can over exfoliate. -Goal is to start isotretinoin but he would like to have a hysterectomy first (hoping to do that innext couple months) and then would be agreeable to start. He will reach out to me when he is ready. Patient alone today. Follow-up: PRN Photos taken 1-5, patient consented to photos taken. Contact patient via expressor software Patient Phone Numbers Applicable photos (if any) and chart reviewed by Dr. Joslyn Kaplan. The patient was encouraged to contact me with any further questions or concerns. Latanya Browning PA-C 07/17/2024 3:21 PM documented in this encounter Nursing Notes * Belinda Fuller LPN - 07/17/2024 3:24 PM EDT Chief Complaint Patient presents with Re-Check Acne - feels like the Doxy and Clindamycin ointment is helping on chest. But was unable to potato picker the BP and Clindamycin gel - states pharmacy never received and if they did they never notified him that it was there. 05/16/2024 (in office), Visit date not found (telemedicine) documented in this encounter Plan of Treatment Upcoming Encounters Date Type Department Care Team (Late st Contact Info) Description 08/29/2024 4:40 PM EST Office Visit [facility] [address] [place] [address] Ari Atkinson MD [address] [place] [place] [address] 10/18/2024 1:00 PM EST Office Visit Allergy/Immunology [facility] [address] [facility] [place] [address] Bruce Freeman MD [address] [facility] [place] [address] 12/05/2024 4:40 PM EDT Office Visit [facility] [address] [address] Ari Atkinson MD [address] [facility] [place] [address] 03/06/2025 5:40 PM EDT Office Visit [facility] [address] [place] [address] Ari Atkinson MD [address] [facility] [place] [address] 05/15/2025 3:30 PM EDT Office Visit Neurology [facility] [address] [facility] [place] [address] Ana Gilbert PA-C [address] [address] 06/05/2025 5:40 PM EDT Office Visit Family Practice [facility] [address] [address] Ari Atkinson MD [address] [address] Health Maintenance Due Date Last Done Comments Hepatitis C Screening 2015 Pap Smear 09/05/2022 09/05/2019 COVID-19 Vaccine ( season) 2024 09/24/2021, 12/28/2020, 12/14/2020 Influenza Vaccine (FLU shot) (#1) 2024 06/15/2023, 06/01/2022, 09/08/2021, Additional history exists Depression Monitoring 06/06/2025 06/06/2024 DTap/Tdap Vaccines (7 - Td or Tdap) [...] Procedure Name Priority Date/Time Associated Diagnosis Comments DERM EXAM - DERM (IMAGES ONLY, NO REPORT) Routine 07/17/2024 4:00 PM EDT Acne vulgaris documented in this encounter Results * DERM EXAM - DERM (IMAGES ONLY, NO REPORT) (07/17/2024 4:00 PM EDT) Narrative Scheduling, Silent - 07/17/2024 4:00 PM EDT This is an imaging study not interpreted or resulted by a [facility] or [facility] contracted radiologist. Latanya Browning PA-C [facility] ([facility]) documented in this encounter Visit Diagnoses Diagnosis Acne vulgaris- Primary Other acne documented in this encounter Care Teams Psychology Teacher Relationship Specialty Start Date End Date Ari Atkinson MD [address] [facility] [place] [address] PCP - General Family Medicine 02/10/19 documented as of this encounter
--- OUTSIDE RECORDS SUMMARY | 2024-11-17 05:56 | External Medical Summary ---
Author Name Unknown Address Unknown Organization [id number]:[facility] [place] - [address] [place] [address] Laboratory Report Ordering Provider Test Date Status ALONDRA MCGARRY 07/31/2024 11:11:55 Final Observation Date Value Abnormality Reference (Units ) Status Cholesterol 07/31/2024 11:11:55 121 <200 (mg /dL) Final Total Cholesterol Reference Ranges (mg/dL):
<200 Desirable
200-239 Borderline high
>=240 High Performing Location LABORATORY [facility] - [address] [place] [address]
--- OUTSIDE RECORDS SUMMARY | 2024-11-17 05:56 | External Medical Summary ---
Author Name Unknown Address Unknown Organization K09:[facility] [place] [address] Laboratory Report Ordering Provider Test Date Status ALONDRA MCGARRY 07/31/2024 11:11:55 Final Observation Date Value Abnormality Reference (Units ) Status ALT (Alanine aminotransferase) 07/31/2024 11:11:55 18 10-35 (U/L) Final Performing Location [facility] [place] [address]
--- OUTSIDE RECORDS SUMMARY | 2024-11-17 05:56 | External Medical Summary ---
Author Name Unknown Address Unknown Organization K09:[facility] [place] [address] Laboratory Report Ordering Provider Test Date Status ALONDRA MCGARRY 07/31/2024 11:11:55 Final Observation Date Value Abnormality Reference (Units ) Status AST (Aspartate aminotransferase) 07/31/2024 11:11:55 25 10-35 (U/L) Final Result may be falsely elevat ed due to hemolysis. Performing Location [facility] [place] [place] [address]
--- OUTSIDE RECORDS SUMMARY | 2024-11-17 05:56 | External Medical Summary | Summary of Care ---
Author Name Unknown Organization [facility] Address [address] [place] [address] Phone [phone] Care Team Providers Care Tobacco Warehouse Agent Name Role Phone Ari Atkinson MD Primary Care Provider + Reason for Visit * Reason Comments Return Visit 9 months. L eye is i rritated. Would like to discuss future hysterectomy/go over some questions. Would like a letter to get gender changed on certificate. Encounter Details Date Type Department Care Team (Late st Contact Info) Description 08/29/2024 4:40 PM EST Office Visit Family Practice [facility] [address] [place] [address] Ari Atkinson MD [address] [place] [address] Lbioxb-su-shqp transgender person*; Cystic acne; Allergic conjunctivitis, bilateral Allergies Active Allergy Reactions Criticality Noted Date Comments Egg-Derived Products Low 02/10/2019 Upset stomach, no anaphylaxis Lactose 04/04/2019 Allergic to another ingredient in dairy products Latex 08/30/2023 Other Allergy (See Comments) Medium 04/08/2022 [place] Fragrances, grass Acetaminophen 02/10/2019 Feels makes his pain worse generally. documented as of this encounter (statuses as of 08/29/2024) Medications Loratadine 10 MG Oral Tablet (Claritin) [...] Rizatriptan Benzoate 10 MG Oral Tablet Disintegrating (Maxalt-KETTLE CLEANER) Take 1 Tablet by mouth as needed [...] 20.25 MG/ACT (1.62%) Transdermal Gel (AndroGel Pump)Indications:F gvvtl-bp-xoxy transgender person PLACE 2 PUMP TOPICALLY ON [...] activity). with food for pain 30 Tablet 08/29/20 24 Active Olopatadine HCl 0.1 % Ophthalmic SolutionIndication s:Allergic conjunctivitis, bilateral Instill 1 Drop into both eyes 2 times a day as needed for Itching. In affected eye(s) for allergic eyes 5 mL 11 08/29/20 24 Active Albuterol Sulfate HFA 108 (90 Base) MCG/ACT Inhalation Aerosol Solution Inhale 2 Puffs by mouth every 6 hours as needed for Cough or Wheezing. 18 g 5 12/16/19 23 024 Discontin ued(Refil l) Olopatadine HCl 0.1 % Ophthalmic SolutionIndication s:Allergic conjunctivitis, bilateral Instill 1 Drop into both eyes 2 times a day as needed for Itching. In affected eye(s) for allergic eyes 5 mL 03/16/20 23 024 Discontin ued(Refil l) Ibuprofen 800 MG Oral Tablet (Motrin)Indication s:Spotting Take 1 Tablet by mouth 3 times a day as needed for Other (1 hour before activity). with food for pain 30 Tablet 03/16/20 23 024 Discontin ued(Refil l) Clobetasol Propionate 0.05 % External Ointment (Temovate)Indicati ons:Cystic acne Apply topically to affected area 2 times a day. To affected area for up to two weeks. (The red swollen jelly-like acne spot on chest) 15 g 1 05/14/20 24 024 Discontin ued(Refil l) documented as of this encounter (statuses as of 08/29/2024) Active Problems Problem Noted Date Diagnosed Date [...] of recurrent major depressive d isorder 02/10/2019 Ydiaor-zw-mjfd transgender person 02/10/2019 Well adult exam 02/10/2019 Overview (12/08/2023): 12/11 EMG RUE WNL 09/[address] Luiza Ayala. 04/10 -EMG RUE Normal study. There is no electrodiagnostic evidence of a median or ulnar neuropathy, polyneuropathy, plexopathy, or cervical radiculopathy in the right upper extremity. 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 No psychiatry. Had bad experiences with [facility]. ' stopped therapy [facility]. Left arm/leg mottled since , worse in cold, inc calf circ on left. Chronic rhinitis 08/11/2015 Depression with anxiety 08/11/2015 Malocclusion 07/21/2014 Deliberate self-cutting 07/21/2014 Generalized anxiety disorder 07/18/2014 Idiopathic scoliosis 05/05/2013 documented as of this encounter (statuses as of 08/29/2024) Resolved Problems Problem Noted Date Diagnosed Date [...] as of this encounter (statuses as of 08/29/2024) Immunizations Name Administration Dates Next Due COVID-19 mRNA, LNP-s, No Pre serve, 2-Dose Series (Pfizer) 09/24/2021,12/28/2020,12/14/2020 COVID-19, MRNA-LNP, PF, 30 M CG/0.3 [...] Answer Date Recorded PHQ Adult Total Score 7 08/22/2024 Hunger Vital Sign Answer Date Recorded Within [...] Job Start Date Job End Date [employer]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 Not on file Not on f ile Not on file documented as of this encounter Last Filed Vital Signs Vital Sign Reading Time Taken Comments Blood Pressure 118/64 08/29/2024 5:14 PM EST Pulse 95 08/29/2024 5:14 PM EST Temperature - - Respiratory Rate - - Oxygen Saturation 97% 08/29/2024 5:14 PM EST Inhaled Oxygen Concentration - - Weight 58.2 kg (128 lb 6.4 oz) 08/29/2024 5:14 P M EST Height - - Body Mass Index 21.7 08/24/2024 1:50 PM EST documented in this encounter Progress Notes * Ari Atkinson MD - 08/29/2024 7:52 PM EST Images from the original note were not included. Subjective Faina Santiago is a 29 year old adult presenting for Return Visit (9 months. L eye is irritated. Would like to discuss future hysterectomy/go over some questions. Would like a letter to get gender changed on certificate. ) History of Present Illness The patient, with a history of knee pain and migraines, presents with questions about his upcoming hysterectomy for gender dypshoria. He expresses apprehension about the recovery process, particularly the potential for pain and the need for assistance with bandaging. He also inquires about the possibility of sexual dysfunction post-surgery. He also expresses concern about his testosterone levels, which have been slightly high in recent tests. As a result , his Rx was reduced from 3pumps to 2 pumps/ daily. Androgel The patient is also considering hydrotherapy for his chronic knee pain, which has been resistant tophysical therapy. He reports that even small exercises result in multiple days of pain. In addition, the patient is seeking a letter for a gender marker change and is considering a name change. He also mentions having an autism assessment and is seeking a copy of it--From Dr Ayala--I don't see a scanned copy. He is also considering the possibility of having a minor form of POTS, as he experiences dizziness and migraines, which he notes are common comorbidities with autism. Patient has a diagnosis of gender dysphoria evidenced by chart documentation and my evaluation as aqualified family physician who treats mental health and gender identity disorder regularly. The condition is not the result of another disorder or other conditions. The patient desires to live and beexcepted as a member of the opposite sex and may be accompanied by the desire to make the body physi olivia as congruent as possible about identified sex through treatment. The gender dysphoria causes distress of impairment in social , educational,occupational or other important areas of functioning.If any mental health issues are present they are reasonably well controlled. See above. The patienthas completed a minimum of 3 continuous months of living in the general congruent with her gender identity and or has had a period of 3 months of psychotherapy. The patient has adequate psychologicalin support available during treatment. The patient has documented that they have adequate knowledgeand understanding of the expected outcomes of cross gender hormone treatment as well as medical social risks and benefits of gender reassignment (informed consent signed). I am a clinician trained transgender healthcare with an active transgender medical practice in my family medicine practice. This medicine is being prescribed in a manner consistent with the current World Professional Association for transgender health (WPATH) standards of care for the health transsexual, transgender, and gender non conforming people. Objective Blood pressure 118/64, pulse 95, weight 128 lb 6.4 oz (58.2 kg), last menstrual period 08/20/2024, SpO2 97%, not currently . Physical Exam HEENT: Eyes without erythema or exudate. Head and neck glands normal. CHEST: Lungs clear to auscultation. CARDIOVASCULAR: Heart sounds regular, no murmurs. Results LABS Testosterone: 800 ng/dL (07/2024) Assessment and Plan Assessment & Plan Hysterectomy Discussed potential changes in orgasm post-hysterectomy due to loss of uterine muscle contractions.No impact on clitoral stimulation expected. - pt wants to proceed with planned hysterectomy for gender dysphoria Testosterone Therapy Recent testosterone levels slightly high, but no evidence of polycythemia. Discussed potential inaccuracies in blood draw due to gel application site. - Reduced testosterone gel to 2 pumps daily. - Apply gel to leg 3 days prior to next lab draw. Unexplained Arm and Leg Pain Patient reports deep, dull, aching pain in arms and legs, not associated with muscle strain or cramping. - Plan to further investigate at next visit. - Plan to test for POTS with blood pressure checks in different positions at future visit. General Health Maintenance - Continue with scheduled appointments and labs. - Consider hydrotherapy for knee pain post-hysterectomy recovery. - Explore potential for visiting nurse aid post-hysterectomy. Qnopyq-hn-wjyu transgender person (Primary) Cystic acne - Clobetasol Propionate 0.05 % External Ointment (Temovate); Apply topically to affected area 2 times a day. To affected area for up to two weeks. (The red swollen jelly-like acne spot on chest) Allergic conjunctivitis, bilateral - Olopatadine HCl 0.1 % Ophthalmic Solution; Instill 1 Drop into both eyes 2 times a day as needed for Itching. In affected eye(s) for allergic eyes Other orders - Albuterol Sulfate HFA 108 (90 Base) MCG/ACT Inhalation Aerosol Solution; Inhale 2 Puffs by mouth every 6 hours as needed for Cough or Wheezing. - Ibuprofen 800 MG Oral Tablet (Motrin); Take 1 Tablet by mouth 3 times a day as needed for Other (1 hour before activity). with food for pain Wrap-Up Follow-up: Return in about 1 year (around 08/29/2025). | Check-out note: Keep appts w/ me already scheduled Add Aug 2025. Time: I spent a total of 30-39 minutes (exact time 26 mins) on the date of service in preparation, delivery, and documentation of the care provided to Linda Santiago excluding any time spent in the performance of separately billed services. Text in this note was generated using an ambient documentation service. I discussed the use of a device to record and summarize our discussion today. All persons present during the encounter consented to its use. documented in this encounter Nursing Notes * Trinidad Salguero CMA - 08/29/2024 5:17 PM EST The patient has been properly identified by confirmation of name and date of . Chief Complaint Patient presents with Return Visit 9 months. L eye is irritated. Would like to discuss future hysterectomy/go over some questions. Would like a letter to get gender changed on certificate. Would like to discuss getting pneumonia documented in this encounter Plan of Treatment Upcoming Encounters Date Type Department Care Team (Late st Contact Info) Description 08/30/2024 3:00 PM EST Telemedicine Psychology, [facility] [address] [facility] [place] [address] Linda Mcnulty PsyD [address] [facility] [place] [address] 08/31/2024 3:00 PM EST Office Visit Allergy/Immunology [facility] [place] [address] [facility] [place] [address] Bruce Freeman MD [address] [facility] [place] [address] 12/05/2024 4:40 PM EDT Office Visit [facility] [address] [facility] [place] [address] Ari Atkinson MD [address] [facility] [place] [address] 03/06/2025 5:40 PM EDT Office Visit [facility] [address] [facility] [place] [address] Ari Atkinson MD [address] [facility] [place] [address] 05/15/2025 3:30 PM EDT Office Visit [facility] [address] [place] [address] Ana Gilbert PA-C [address] [facility] [place] [address] 06/05/2025 5:40 PM EDT Office Visit [facility] [address] [facility] [place] [address] Ari Atkinson MD [address] [facility] [place] [address] 09/04/2025 5:40 PM EST Office Visit [facility] [address] [place] [address] Ari Atkinson MD [address] [facility] [place] [address] Health Maintenance Due Date Last Done Comments Pneumococcal Vaccine: Pediat rics (0 to 5 Years) and At-Risk Patients (6 to 64 Years) (1 of 2 - PCV) 2003 Hepatitis C Screening 2015 Pap Smear 09/05/2022 09/05/2019 DTap/Tdap Vaccines (7 - Td o r Tdap) 08/07/2025 08/07/2015, 01/08/2010, 07/06/2003, Additional history exists Depression Monitoring 08/22/2025 08/22/2024 Hepatitis B Vaccine Completed 09/26/1998, 1997, 1997 [...] as of this encounter Visit Diagnoses Diagnosis Xnxsdg-ym-clki transgender person- Primary Cystic acne Other acne Allergic conjunctivitis, bilateral Other chronic allergic conjunctivitis documented in this encounter Care Teams Tobacco Warehouse Agent Relationship Specialty Start Date End Date Ari Atkinson MD [address] [place] [address] PCP - General Family Medicine 02/10/19 documented as of this encounter"
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
--- OUTSIDE RECORDS SUMMARY | 2024-11-17 05:56 | External Medical Summary | Summary of Care ---
Author Name Unknown Organization [facility] Address [address] [place] [address] Phone [phone] Care Team Providers Care Director Design Name Role Phone Ari Atkinson MD Primary Care Provider + Reason for Visit * Reason Comments Outpatient Testing Encounter Details Date Type Department Care Team (Late st Contact Info) Description 07/31/2024 11:00 AM EST Laboratory Laboratory [facility] [address] [place] [phone] [facility] [address] [place] [address] [employer] Other*[id number]; Uuzymg-yy-pyvx transgender person; Acne vulgaris; On isotretinoin therapy Allergies Active Allergy Reactions Criticality Noted Date Comments Egg-Derived Products Low 02/10/2019 Upset stomach, no anaphylaxis Lactose 04/04/2019 Allergic to another ingredient in dairy products Latex 08/30/2023 Other Allergy (See Comments) Medium 04/08/2022 [place] Fragrances, grass Acetaminophen 02/10/2019 Feels makes his pain worse generally. documented as of this encounter (statuses as of 07/31/2024) Medications Loratadine 10 MG Oral Tablet (Claritin) Take by mouth 1 Tablet daily as needed for Rhinitis. for allergies. 30 Tablet 11 2 Active Advil Allergy Sinus 2-30-200 MG [...] 20.25 MG/ACT (1.62%) Transdermal Gel (AndroGel Pump)Indications:F vxszw-wu-kvzl transgender person PLACE 3 PUMP TOPICALLY ON THE SKIN IN THE MORNING. APPLY TO SHOULDER, OR CHEST OR BACK... 75 g 4 Active Clobetasol Propionate 0.05 % External Ointment (Temovate)Indicati ons:Cystic acne Apply topically to affected area 2 times a day. To affected area for up to two weeks. (The red swollen jelly-like acne spot on chest) 15 g 4 Active Rizatriptan Benzoate 10 MG Oral Tablet Disintegrating (Maxalt-DEV TECHNICAL MGR) Take 1 Tablet by mouth as needed for Migraine. May repeat in 2 hours if needed 10 Tablet 4 Active busPIRone HCl 15 MG Oral [...] as of this encounter (statuses as of 07/31/2024) Active Problems Problem Noted Date Diagnosed Date [...] of recurrent major depressive d isorder 02/10/2019 Qupvcx-um-inco transgender person 02/10/2019 Well adult exam 02/10/2019 Overview (12/08/2023): 12/11 EMG RUE WNL 09/[address] Luiza Ayala. 04/10 -EMG RUE Normal study. There is no electrodiagnostic evidence of a median or ulnar neuropathy, polyneuropathy, plexopathy, or cervical radiculopathy in the right upper extremity. [facility] Counselor BIW. Case mgmt weekly. No psychiatry. Had bad experiences with [facility]. '23 stopped therapy [facility]. Left arm/leg mottled since , worse in cold, inc calf circ on left. 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 Not on file Not on f ile Not on file documented as of this encounter Plan of Treatment Upcoming Encounters Date Type Department Care Team (Late st Contact Info) Description 08/09/2024 11:00 AM EST Office Visit Allergy/Immunology [facility] [address] [place] [address] Bruce Freeman MD [address] [place] [address] 08/14/2024 2:00 PM EST Telemedicine Psychology Lisa Covarrubias [address] [place] [phone] Cristina Huber PsyD [address] [place] [address] 08/29/2024 4:40 PM EST Office Visit Family [facility] [address] [address] Ari Atkinson MD [address] [address] 12/05/2024 4:40 PM EDT Office Visit [facility] [place] [address] Ari Atkinson MD [address] [place] [address] 03/06/2025 5:40 PM EDT Office Visit [facility] [address] [place] [address] Ari Atkinson MD 132 [facility] [place] [address] 05/15/2025 3:30 PM EDT Office Visit Neurology [facility] 200 [place] [address] Ana Gilbert PA-C [address] [place] [address] 06/05/2025 5:40 PM EDT Office Visit [facility] [place] [address] Ari Atkinson MD 132 [facility] [place] [address] Pending Results Name Type Priority Associated Diagnoses Date /Time MYCODE SUBSEQUENT ADULT Lab Routine [employer] Other*[id number] 07/31/2024 11:11 AM EST TESTOSTERONE, TOTAL Lab Routine Febhzm-ua-acks transgender person 07/31/2024 11:11 AM EST CBC WITH WBC DIFFERENTIAL AND ANEMIA REFLEX WORKUP Lab Routine Nhrxnp-ky-iydk transgender person 07/31/2024 11:11 AM EST AST Lab Routine Acne vulgaris On isotretinoin therapy 07/31/2024 11:11 AM EST ALT Lab Routine Acne vulgaris On isotretinoin therapy 07/31/2024 11:11 AM EST CHOLESTEROL Lab Routine Acne vulgaris On isotretinoin therapy 07/31/2024 11:11 AM EST TRIGLYCERIDES Lab Routine Acne vulgaris On isotretinoin therapy 07/31/2024 11:11 AM EST BETA-HCG, QUANTITATIVE Lab Routine Acne vulgaris On isotretinoin therapy 07/31/2024 11:11 AM EST MYCODE SST1 Lab Routine [employer] Other*[id number] 07/31/2024 11:11 AM EST MYCODE SST2 Lab Routine [employer] Other*[id number] 07/31/2024 11:11 AM EST ANEMIA REFLEX CHEMISTRY HOLD Lab Routine Mfnjml-qt-ouqp transgender person 07/31/2024 11:11 AM EST Health Maintenance Due Date Last Done Comments [...] Completed 08/07/2015, 01/08/2010 HPV (Gardasil) Vaccine Completed 9, 02/10/2019, [...] Name Priority Date/Time Associated Diagnosis Comments ANEMIA CBC Routine 07/31/2024 11:11 AM EST Uhajby-ps-qrxx transgender person DIFFERENTIAL, AUTOMATED Routine 07/31/2024 11:11 AM EST Dgpyqr-ev-kvon transgender person documented in this encounter Results * DIFFERENTIAL, AUTOMATED (07/31/2024 11:11 AM EST) WBC 5.84 4.00 - 10.80 K/uL 07/31/2024 11:19 AM [facility] 56-02 Neutrophils % 57.1 40.0 - 75.0 % 07/31/2024 11:19 AM [facility] 56-02 Lymphocytes % 35.1 18.0 - 42.0 % 07/31/2024 11:19 AM [facility] 56-02 Monocytes % 5.7 1.0 - 11.0 % 07/31/2024 11:19 AM EST [facility] 56-02 Eosinophils % 1.9 0.0 - 6.0 % 07/31/2024 11:19 AM [facility] 56-02 Basophils % 0.2 0.0 - 2.0 % 07/31/2024 11:19 AM [facility] 56-02 Absolute Neutrophils 3.34 1.80 - 7.70 K/uL 07/31/2024 11:19 AM [facility] 56-02 Absolute Lymphocytes 2.05 1.00 - 4.80 K/ul 07/31/2024 11:19 AM [facility] 56-02 Absolute Monocytes 0.33 0.00 - 1.10 K/uL 07/31/2024 11:19 AM [facility] 56-02 Absolute Eosinophils 0.11 0.00 - 0.70 K/uL 07/31/2024 11:19 AM [facility] 56-02 Absolute Basophils 0.01 0.00 - 0.20 K/uL 07/31/2024 11:19 AM [facility] 56-02 Blood Venous blood specimen / Unknown Venipuncture / Unknown 07/31/2024 11:11 AM EST 07/31/2024 11:11 AM EST us Ari Atkinson MD LAB BLOOD ORDERABLES Fin al Result [facility] [address] [place] [address] * ANEMIA CBC (07/31/2024 11:11 AM EST) WBC 5.84 4.00 - 10.80 K/uL 07/31/2024 11:19 AM [place] [address] RBC 4.62 3.85 - 5.15 M/uL 07/31/2024 11:19 AM [place] [address] HGB 13.8 12.0 - 15.3 g/dL 07/31/2024 11:19 AM [place] [address] Comment: Anemia reflex testing triggers on a HGB < 12.0 for Females and HGB < 13.0 for Males in accordance with the WHO Anemia Guidelines Anemia reflex testing triggers on a HGB < 12.0 for Females and HGB < 13.0 for Males in accordance with the WHO Anemia Guidelines HCT 41.5 36.0 - 45.2 % 07/31/2024 11:19 AM [place] [address] MCV 89.8 81.5 - 97.5 fL 07/31/2024 11:19 AM [place] [address] MCH 29.9 27.0 - 34.0 pg 07/31/2024 11:19 AM [place] [address] MCHC 33.3 32.0 - 36.0 g/dL 07/31/2024 11:19 AM [place] [address] RDW 12.3 11.5 - 15.5 % 07/31/2024 11:19 AM [place] [address] PLT 188 140 - 400 K/uL 07/31/2024 11:19 AM [place] [address] MPV 10.5 6.6 - 11.1 fL 07/31/2024 11:19 AM [place] [address] Blood Venous blood specimen / Unknown Venipuncture / Unknown 07/31/2024 11:11 AM EST 07/31/2024 11:11 AM EST us Ari Atkinson MD LAB BLOOD ORDERABLES Fin al Result [address] [place] [address] documented in this encounter Visit Diagnoses Diagnosis [employer] Other*[id number] Ncwqnz-qb-mkbm transgender person Acne vulgaris Other acne On isotretinoin therapy Encounter for long-term (current) use of other medications documented in this encounter Care Teams Director Design Relationship Specialty Start Date End Date Ari Atkinson MD [address] [address] PCP - General Family Medicine 02/10/19 documented as of this encounter
--- OUTSIDE RECORDS SUMMARY | 2024-11-17 05:56 | External Medical Summary ---
Author Name Unknown Address Unknown Organization K01:[facility] [place] [address] [facility] [address] Laboratory Report Ordering Provider Test Date Status ELLY HUSTON 07/31/2024 11:11:55 Final Observation Date Value Abnormality Reference (Units ) Status MYCODE SPECIMEN-SST 07/31/2024 11:11:55 Freezing of extracted DNA, whole blood and/or serum. Final Performing Location [facility] [place] [address] [facility] [address]
--- OUTSIDE RECORDS SUMMARY | 2024-11-17 05:56 | External Medical Summary ---
Author Name Unknown Address Unknown Organization K09:[facility] [place] [address] Laboratory Report Ordering Provider Test Date Status GINGER BRANTLEY 07/31/2024 11:11:55 Final Observation Date Value Abnormality Reference (Units ) Status WBC, Total 07/31/2024 11:11:55 5.84 4.00-10.8 0 (K/uL) Final RBC 07/31/2024 11:11:55 4.62 3.85-5.15 (M/uL) Final Hemoglobin 07/31/2024 11:11:55 13.8 12.0-15.3 (g/dL) Final Anemia reflex testing trigge rs on a HGB < 12.0 for Females and HGB < 13.0 for Males in accordance with the WHO Anemia Guidelines
Anemia reflex testing triggers on a HGB < 12.0 for Females and HGB < 13.0 for Males in accordance with the WHO Anemia Guidelines HCT 07/31/2024 11:11:55 41.5 36.0-45.2 (%) Final MCV 07/31/2024 11:11:55 89.8 81.5-97.5 (fL) Final MCH 07/31/2024 11:11:55 29.9 27.0-34.0 (pg) Final MCHC 07/31/2024 11:11:55 33.3 32.0-36.0 (g/dL) Final RDW 07/31/2024 11:11:55 12.3 11.5-15.5 (%) Final Platelets 07/31/2024 11:11:55 188 140-400 (K /uL) Final MPV 07/31/2024 11:11:55 10.5 6.6-11.1 ( fL) Final Performing Location [facility] [place] [address]
--- OUTSIDE RECORDS SUMMARY | 2024-11-17 05:56 | External Medical Summary ---
Author Name Unknown Address Unknown Organization [id number]:[place] [place] [address] [facility] [address] Laboratory Report Ordering Provider Test Date Status ALONDRA MCGARRY 07/31/2024 11:11:55 Final hCG can serve as a screening assay for . However, early may not give a positive hCG test result. In addition, some non- women may have a hCG result slightly higher than the reference limit. Careful interpretation of the hCG with clinical history is required to determine whether the patient may be . Observation Date Value Abnormality Reference (Units ) Status Choriogonadotropin.intact +Beta subunit [Units/volume] in Serum or Plasma 07/31/2024 11:11:55 <0.3 <=1.0 (mIU/mL) Final The above reference range is based on the legal sex of the patient only. Results should be interpreted together with patient's sex at , gender identity, and clinical context. Performing Location LAB[facility]ORY [facility] [place] [address] [facility] [address]
--- OUTSIDE RECORDS SUMMARY | 2024-11-17 05:56 | External Medical Summary ---
Author Name Unknown Address Unknown Organization K01:[place] [facility] [place] [address] [place] [address] Laboratory Report Ordering Provider Test Date Status ALONDRA MCGARRY 07/31/2024 11:11:55 Final Observation Date Value Abnormality Reference (Units ) Status Triglyceride 07/31/2024 11:11:55 44 <=174 ( mg/dL) Final Triglyceride Reference Range s (mg/dL):
<150 Acceptable
150-174 Borderline high
175-499 High
>=500 Very high Performing Location LABORATORY [facility] - [address] [place] [address]
--- OUTSIDE RECORDS SUMMARY | 2024-11-17 05:56 | External Medical Summary ---
Author Name Unknown Address Unknown Organization [id number]:[facility]ORY [facility] [place] [address] [facility] [address] Laboratory Report Ordering Provider Test Date Status ELLY HUSTON 07/31/2024 11:11:55 Final Observation Date Value Abnormality Reference (Units ) Status MYCODE SPECIMEN-SST 07/31/2024 11:11:55 Freezing of extracted DNA, whole blood and/or serum. Final Performing Location LABORATORY [facility] [place] - [address] [facility] [address]
--- OUTSIDE RECORDS SUMMARY | 2024-11-17 05:56 | External Medical Summary | Summary of Care ---
Author Name Unknown Organization [facility] Address [address] [place] [address] Phone [phone] Care Team Providers Care Food Stylist Name Role Phone Ari Atkinson MD Primary Care Provider + Reason for Visit * Reason Comments Psychological Evaluation * - Authorized Specialty Diagnoses / Procedures Referred By Radha brooke Referred To Contact Referral ID Status Reason Start Date Expiration Date V isits Requested Visits Authorized [id number] Authorized 07/21/2024 07/20/2025 999 999 Encounter Details Date Type Department Care Team (Late st Contact Info) Description 08/14/2024 2:00 PM EST Telemedicine Psychology [facility] [address] [place] [address] Cristina Huber PsyD [address], [place] [id number] Gender dysphoria*; Major depressive disorder, recurrent episode, moderate (HCC) Allergies Active Allergy Reactions Criticality Noted Date Comments Egg-Derived Products Low 02/10/2019 Upset stomach, no anaphylaxis Lactose 04/04/2019 Allergic to another ingredient in dairy products Latex 08/30/2023 Other Allergy (See Comments) Medium 04/08/2022 Keeler Fragrances, grass Acetaminophen 02/10/2019 Feels makes his pain worse generally. documented as of this encounter (statuses as of 08/22/2024) Medications Loratadine 10 MG Oral Tablet (Claritin) [...] Rizatriptan Benzoate 10 MG Oral Tablet Disintegrating (Maxalt-CONTINUING EDUCATION DEAN) Take 1 Tablet by mouth as needed [...] 20.25 MG/ACT (1.62%) Transdermal Gel (AndroGel Pump)Indications:F jlywg-hd-bqjm transgender person PLACE 2 PUMP TOPICALLY ON THE SKIN IN THE MORNING. APPLY TO SHOULDER, OR CHEST OR BACK 75 g 5 4 Active documented as of this encounter (statuses as of 08/22/2024) Active Problems Problem Noted Date Diagnosed Date [...] of recurrent major depressive d isorder 02/10/2019 Tkrobu-pf-bbiu transgender person 02/10/2019 Well adult exam 02/10/2019 Overview (12/08/2023): 12/11 EMG RUE WNL 09/[address] Luiza Ayala. 04/10 -EMG RUE Normal study. There is no electrodiagnostic evidence of a median or ulnar neuropathy, polyneuropathy, plexopathy, or cervical radiculopathy in the right upper extremity. [facility] Counselor BIW. Case mgmt weekly. No psychiatry. Had bad experiences with [facility]. '23 stopped therapy [facility]. Left arm/leg mottled since , worse in cold, inc calf circ on left. Chronic rhinitis 08/11/2015 Depression with anxiety 08/11/2015 Malocclusion 07/21/2014 Deliberate self-cutting 07/21/2014 Generalized anxiety disorder 07/18/2014 Idiopathic scoliosis 05/05/2013 documented as of this encounter (statuses as of 08/22/2024) Resolved Problems Problem Noted Date Diagnosed Date [...] as of this encounter (statuses as of 08/22/2024) Immunizations Name Administration Dates Next Due COVID-19 mRNA, LNP-s, No Pre serve, 2-Dose Series (Flimmer) 09/24/2021,12/28/2020,12/14/2020 COVID-19, MRNA-LNP, PF, 30 M CG/0.3 mL, 12 YRS AND ABOVE, IM [facility] 08/09/2024 DTaP Dipth/Tet/Acell Pertussis (Infanrix), [...] Job Start Date 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 Not on file Not on f ile Not on file documented as of this encounter Progress Notes * Cristina Huber PsyD - 08/14/2024 2:05 PM EST BEHAVIORAL MEDICINE ASSESSMENT FOR GENDER AFFIRMING CARE DEPARTMENT OF PSYCHIATRY & BEHAVIORAL MEDICINE [address] [place] [address] Psychology [address] [facility] [facility] [phone] 08/14/2024 2:05 PM REASON FOR REFERRAL Faian Santiago ([id number]) is a 28 year old adult seeking gender affirming care. Faina Santiago's primary care provider is Ari Atkinson MD. A review was conducted of the medical record. Time spent on this visit was 66 minutes. BRIEF SUMMARY OF ASSESSMENT ASSESSMENT & DISPOSITION Patient's readiness to undergo gender-affirming medical treatment, specifically a hysterectomy, hasbeen assessed according to World Professional Association for Transgender Health Standards of Care (WPATH SOC), Version 8. In summary: Patient is age 18 or older (age of majority in the [place]) Patient's experience of gender incongruence is marked and sustained Patient meets full diagnostic criteria for Gender Incongruence (ICD-11) and/or Gender Dysphoria (DSM-5-TR) Other possible causes of apparent gender incongruence have been ruled our prior to the initiation of gender-affirming medical treatments. Mental and physical health conditions that could negatively impact the outcome of gender-affirming medical treatments have been assessed, and potential risks and benefits have been thoroughly discussed with patient. Patient wishes to proceed with the requested gender-affirming treatment as described below. Based on my assessment, this treatment is indicated from a psychological perspective. Patient has the capacity to consent for the specific gender-affirming medical treatment(s) requested and described below. Patient has the capacity to understand the effect of the gender-affirming treatment on reproduction. Reproductive options were explored with the individual prior to the initiation of this treatment. The role of social transition has been discussed with patient and they wish to proceed with the gender-affirming treatment. Based on my assessment, this treatment is indicated from a psychological perspective. RECOMMENDATIONS The patient was given the following recommendations to reduce post-operative risk and optimize outcome: - Engage in outpatient psychotherapy for treatment of depression and anxiety. - Patient was told that two letters of support are required prior to surgery. Installer Apprentice will consult with Dr. Mcnulty to request second evaluation. Patient location: HOME. I was in a hospital or clinic location. After connecting through televideo,patient was verified with two unique identifiers. Patient (or authorized legal quality audit representative) was then informed that this was a Telemedicine visit and being conducted confidentially over secure lines. Methods to assure confidentiality were taken. Patient acknowledged consent and understanding of pr ivacy and security of the Telemedicine visit. The patient agreed to participate. Provider determined this patient has capacity to receive and benefit from telehealth services. Timing assessment: This is the initial onset of the assessed illness: hysterectomy evaluation Face to Face Start Time: see start time at beginning of note Face to Face Stop Time: 3:11 PM Referral Source: Ari Atkinson MD Risk Assessment: Completed. Please see below for additional information. History of Present Illness: GENDER IDENTITY Gender Assigned at : female Preferred Name: Faina Preferred Pronouns: he/him Gender Identity: male Timeline: Patient first began questioning their gender identity at 2-3 years old Patient first told parents when he was 2-3 years old and received a dismissive response from fatherand neutral response from mother. Patient then "officially" told parents at 20 years old. Patient's gender identity has evolved over the years. Dissatisfaction: Patient feels dysphoric about their body Patient wishes they could modify their chest, menstrual cycle, facial shape, voice, and body shape ("curves") Patient reports significant distress due to body mismatch GENDER EXPRESSION Steps taken towards masculinization include HRT (when 23 yo), binding breasts and clothing choices Future plans include pursuing hysterectomy Patient shared they they present masculine at home, masculine in the community, and masculine at work. Patient does utilize their preferred name in all settings Patient's medical record does reflect their preferred name. Patient has spent time interacting with others while openly expressing their gender identity. Theseexperiences have been a mixture of positive and negative. SURGERY Patient came to the decision to pursue hysterectomy through medical advice and recommendations Patient expressed a desire to have surgery to alleviate gender dysphoria In anticipation of sub-optimal outcome, patient plans to maintain open communication with medical team Understanding of Risks and Side Effects: Aware of hysterectomy surgery risks, including: infection, bleeding, damage to nearby organs, bloodclots, anesthesia complications, pain, early menopause if ovaries are removed, hormonal changes, sexual dysfunction, urinary incontinence, vaginal prolapse, worsening of mental health concerns and/orinfertility. Patient has no concerns about risks associated with surgery. Patient has no concerns about the potential effect of treatment on fertility. Patient would not like to receive additional information about what options are available. PSYCHOSOCIAL IMPLICATIONS Patient currently lives independently . Patient's current support system includes brother, sister, people LGBTQ community center, online community Patient understands the potential social benefits and risks. Patient is not concerned about how surgery will impact their social experiences. Patient does not have concerns about how surgery will affect dating. Patient intends to seek supportive allies nearby if they receive negative reactions from people. Mood Screen Results: Patient Health Questionnaire (PHQ-9) score is 11. This is in PHQ-9 range of 10- 14 moderate depression. PHQ-9, Item 9 score = 1 Suicidal ideation: denied suicidal ideation, endorsed fleeting passive wish Generalized Anxiety Disorder (KERRI-7) score is 8. This is in KERRI-7 range of 5-9 mild anxiety. Psychiatry Review of Systems: Depression: depressed mood, insomnia, fatigue, difficulty concentrating, and passive wish Suicide: denied Homicide: denied Generalized Anxiety Disorder: increase in worry, feeling nervous, trouble relaxing, irritability Psychosis: denied symptoms Obsessive Compulsive Disorder: denied symptoms Panic: denied symptoms Disordered Eating: denied symptoms PTSD: denied symptoms Natasha: denied symptoms Current Psychiatric Treatment: Outpatient Therapy: None Outpatient Psychiatry: None Other: None Past Psychiatric History: Outpatient therapy: Endorses (19 years old until 21 years old, then again 23 to 25 years old, last in therapy when [age] years old) Psychotropic medication management: Denies lifetime history IOP, PHP, or residential: Denies lifetime history Psychiatric hospitalizations: Denies lifetime history Self injury and suicide attempts: "When I was 19 and then a few suicide attempts in my 20s" Last attempt was in 2020 "Drown, slit my throat" Prior psychotropic medical trials: Denies Trauma, abuse, exploitation or trafficking: none Family Psychiatric History: Psychiatric diagnoses: Unknown Attempted suicides/ by suicide: Unknown Drug and alcohol abuse: Unknown Personal, Family and Social History: Living situation: Self Relationship status: Single Progeny: Children: 0 Education: 10th grade Employment: Disabled. History: None Legal History: None Intellectual Disability Diagnosis: No Activities of Daily Living: Good Additional community service involvement: None Leisure and recreational interest: Spend time with social supports Baptist/Spiritual Orientation: Declined Health Behaviors: Alcohol Use: Denies lifetime history Medical Cannabis: Denies lifetime history Substance Use: Denies lifetime history Tobacco Use: Denies lifetime history Caffeine: 2-6 cups per day of tea Sleep Quality: poor with DIMS (difficulty initiating & maintaining sleep). Hours of sleep per night: 4 - 6 Current Obstructive Sleep Apnea Diagnosis? No Pain screening: Is patient experiencing any pain related to today's visit? No. Current Pain Level (0-10): 3 Nutritional Screening: No concerns Mental Status Evaluation: Appearance: Well groomed, casually dressed, appearing stated age Abnormal Movement: No abnormal movements noted Behavior: Calm, cooperative and appropriate Speech and Language: Normal in rate, rhythm, volume and tone Mood: Euthymic Affect: Appropriate to content and mood-congruent Thought Process: Logical, linear and goal directed Thought Content: No abnormal thought content Hallucinations: No perceptual disturbances Suicidality: No suicidal ideations, intent, method or plan or passive wish Homicidality: No homicidal ideations, intent, plan or target Orientation: Oriented to self, time, place and circumstances Attention: Intact Recent and Remote memory: Intact Insight: Good Judgement: Good Fund of Knowledge: Good Assessment/Formulation: Linda Santiago ([id number]) is a 28 year old adult seen today by behavioral medicine FOR GENDER AFFIRMING CARE and recommendations associated with today's evaluation can be found above. Diagnosis: Gender Dysphoria & MDD, recurrent, moderate Plan: Brian-Brown Suicide Safety Plan was developed on 08/14/2024. As this is a one time evaluation a treatment plan will not be created. However, should patient engage in ongoing treatment, a planwill be created with that provider at that time. Type of Service: Psychological Evaluation Crisis Planning: What I can do if I ever experience a crisis (much worse symptoms, severe distress or thoughts of self-harm): Talking to loved one or friend or trusted person People I can call in the event of a crisis: siblings. Additional resources I can utilize if the previous steps are ineffective (e.g: ED, hotlines): Suicide and Crisis Lifeline - 988, Clinic number: 223-013-2281, and [facility] Hotlines for Help Patients Strengths and Facilitating Factors to care: Goal Oriented The assessment and plan for Linda Santiago are detailed at the beginning of this report. Treatment options and recommendations/interventions reviewed. Patient and/or caregiver verbalize understanding and agrees to plan with explanation of risks/benefits, aware of how to contact clinic with questions. Cristina Huber Psy.D. Clinical Psychologist [facility] Department of Psychiatry & Behavioral Health documented in this encounter Plan of Treatment Upcoming Encounters Date Type Department Care Team (Late st Contact Info) Description 08/24/2024 2:00 PM EST Office Visit Gynecology/Obstetrics [facility] [address] [place] [address] Al Mujica MD [address] [place] [address] 08/29/2024 4:40 PM EST Office Visit [facility] [address] [place] [address] Ari Atkinson MD [address] [facility] [place] [address] 08/31/2024 3:00 PM EST Office Visit Allergy/Immunology [facility] [address] [facility] [place] [address] Bruce Freeman MD [address] [facility] [place] [address] 12/05/2024 4:40 PM EDT Office Visit [facility] [address] [facility] [place] [address] Ari Atkinson MD [address] [place] [address] 03/06/2025 5:40 PM EDT Office Visit [facility] [address] [facility] [place] [address] Ari Atkinson MD [address] [place] [address] 05/15/2025 3:30 PM EDT Office Visit Neurology [facility] [address] [place] [address] Ana Gilbert PA-C [address] [place] [address] 06/05/2025 5:40 PM EDT Office Visit [facility] [address] [facility] [place] [address] Ari Atkinson MD [address] [address] Scheduled Referrals Name Type Priority Associated Diagnoses Orde r Schedule ADULT/PEDS PSYCHOLOGY REFERRAL OP Referral Within 10 days (routine) Uzvvko-ul-flip transgender person Ordered: 07/28/2024 Health Maintenance Due Date Last Done Comments [...] in children Major depressive disorder, recurrent episode, moderate (HCC) Major depressive disorder, recurrent episode, moderate documented in this encounter Care Teams Food Stylist Relationship Specialty Start Date End Date Ari Atkinson MD [address] [address] PCP - General Family Medicine 02/10/19 documented as of this encounter
--- OUTSIDE RECORDS SUMMARY | 2024-11-17 05:56 | External Medical Summary ---
Author Name Unknown Address Unknown Organization K01:[place] [facility] [address] [place] [address] Laboratory Report Ordering Provider Test Date Status GINGER BRANTLEY 07/31/2024 11:11:55 Final The above reference range is based on the legal sex of the patient only. Results should be interpreted together with patient's sex at , gender identity, and clinical context. Observation Date Value Abnormality Reference (Units ) Status Testosterone [Mass/volume] in Serum or Plasma 07/31/2024 11:11:55 916.5 Above high normal 2.9-48.0 (ng/dL) Final Performing Location [place] [facility] [place] [address] [facility] [address]
--- OUTSIDE RECORDS SUMMARY | 2024-11-17 05:56 | External Medical Summary ---
Author Name Unknown Address Unknown Organization K09:LABORATORY [place] [address] Laboratory Report Ordering Provider Test Date Status GINGER BRANTLEY 07/31/2024 11:11:55 Final Observation Date Value Abnormality Reference (Units ) Status SYNC LEUKOCYTES IN BLOOD BY AUTOMATED COUNT 07/31/2024 11:11:55 5.84 4.00-10.80 (K/uL) Final Segs 07/31/2024 11:11:55 57.1 40.0-75.0 (%) Final Lymphs % 07/31/2024 11:11:55 35.1 18.0-42.0 (%) Final Monos 07/31/2024 11:11:55 5.7 1.0-11.0 (%) Final Eosinophils 07/31/2024 11:11:55 1.9 0.0-6.0 (%) Final Basos 07/31/2024 11:11:55 0.2 0.0-2.0 (%) Final Absolute Segs 07/31/2024 11:11:55 3.34 1.80-7.70 (K/uL) Final Lymphs, absolute 07/31/2024 11:11:55 2.05 1.00-4.80 (K/ul) Final Monos, Abs 07/31/2024 11:11:55 0.33 0.00-1.10 (K/uL) Final Eos, Abs 07/31/2024 11:11:55 0.11 0.00-0.70 (K/uL) Final Basos, Abs 07/31/2024 11:11:55 0.01 0.00-0.20 (K/uL) Final Performing Location [facility] [place] [address]
--- OUTSIDE RECORDS SUMMARY | 2024-11-17 05:57 | External Medical Summary | Summary of Care ---
Author Name Unknown Organization [facility] Address [address] [place] [address] Phone [phone] Care Team Providers Care Public Relations Analyst Name Role Phone Ari Atkinson MD Primary Care Provider + Reason for Visit * Reason Comments Re-Check Acne - feels like th e Doxy and Clindamycin ointment is helping on chest. But was unable to parts picker the BP and Clindamycin gel - states pharmacy never received and if they did they never notified him that it was there. Encounter Details Date Type Department Care Team (Late st Contact Info) Description 07/17/2024 3:30 PM EDT Office Visit Dermatology, Eli Gutierrez [address] [place] [address] Latanya Browning PA-C [address] [id number] Acne vulgaris* Allergies Active Allergy Reactions Criticality Noted Date Comments Egg-Derived Products Low 02/10/2019 Upset stomach, no anaphylaxis Lactose 04/04/2019 Allergic to another ingredient in dairy products Latex 08/30/2023 Other Allergy (See Comments) Medium 04/08/2022 [place] Fragrances, grass Acetaminophen 02/10/2019 Feels makes his pain worse generally. documented as of this encounter (statuses as of 07/17/2024) Medications Medication Sig Dispensed Refills Start Date [...] 20.25 MG/ACT (1.62%) Transdermal Gel (AndroGel Pump)Indications:Fe jtyr-uj-ooss transgender person PLACE 3 PUMP TOPICALLY ON [...] Rizatriptan Benzoate 10 MG Oral Tablet Disintegrating (Maxalt-PSYCH THERAPIST) Take 1 Tablet by mouth as needed [...] as of this encounter (statuses as of 07/17/2024) Active Problems Problem Noted Date Diagnosed Date [...] of recurrent major depressive d isorder 02/10/2019 Kxwzgl-tc-bfds transgender person 02/10/2019 Well adult exam 02/10/2019 Overview: 12/11 EMG RUE WNL 09/[address] Luiza Ayala. 04/10 -EMG RUE Normal study. There is no electrodiagnostic evidence of a median or ulnar neuropathy, polyneuropathy, plexopathy, or cervical radiculopathy in the right upper extremity. [facility] Counselor BIW. Case mgmt weekly. No psychiatry. Had bad experiences with [facility]. ' stopped therapy [facility]. Left arm/leg mottled since , worse in cold, inc calf circ on left. Chronic rhinitis 08/11/2015 Depression with anxiety 08/11/2015 Malocclusion 07/21/2014 Deliberate self-cutting 07/21/2014 Generalized anxiety disorder 07/18/2014 Idiopathic scoliosis 05/05/2013 documented as of this encounter (statuses as of 07/17/2024) Resolved Problems Problem Noted Date Diagnosed Date [...] as of this encounter (statuses as of 07/17/2024) Immunizations Name Administration Dates Next Due COVID-19 [...] documented in this encounter Progress Notes * Latanya Browning PA-C - 07/17/2024 3:21 [...] discussed isotretinoin but he needed to call [employer] to re-activate his account (problem re-activating it [...] Advil Allergy Sinus 2-30-200 MG Oral Tablet (Fqxrzigjcezhvzcr-YXH-Mnmscwkyr) Take by mouth. Albuterol Sulfate HFA 108 [...] Rizatriptan Benzoate 10 MG Oral Tablet Disintegrating (Maxalt-PSYCH THERAPIST) Take 1 Tablet by mouth as neededfor [...] consented to photos taken. Contact patient via [employer] Patient Phone Numbers Applicable photos (if any) [...] helping on chest. But was unable to parts picker the BP and Clindamycin gel - states pharmacy never received and if they did they never notified him that it was there. 05/16/2024 (in office), Visit date not found (telemedicine) documented in this encounter Plan of Treatment Upcoming Encounters Date Type Department Care Team (Late st Contact Info) Description 08/29/2024 4:40 PM EST Office Visit [address] [place] [address] Ari Atkinson MD [address] [place] [address] 10/18/2024 1:00 PM EST Office Visit Allergy/Immunology [facility] [address] [facility] [place] [address] Bruce Freeman MD [address] [facility] [place] [address] 12/05/2024 4:40 PM EDT Office Visit [facility] [address] [place] [address] Ari Atkinson MD [address] [place] [address] 03/06/2025 5:40 PM EDT Office Visit [facility] [address] [place] [address] Ari Atkinson MD [address] [facility] [place] [address] 05/15/2025 3:30 PM EDT Office Visit Neurology [facility] [address] [facility] [place] [address] Ana Gilbert PA-C [address] [facility] [place] [address] 06/05/2025 5:40 PM EDT Office Visit [facility] [address] [place] [address] Ari Atkinson MD [address] [place] [address] Health Maintenance Due Date Last Done Comments Hepatitis C Screening 2015 Pap Smear 09/05/2022 09/05/2019 COVID-19 Vaccine (4 - 2024-25 season) 2024 09/24/2021, 12/28/2020, 12/14/2020 Influenza Vaccine [...] interpreted or resulted by a [facility] or [facility] contracted radiologist. Latanya Browning PA-C RADIOLO GY ([facility]) documented in this encounter Visit Diagnoses Diagnosis Acne vulgaris- Primary Other acne documented in this encounter Care Teams Public Relations Analyst Relationship Specialty Start Date End Date Ari Atkinson MD [address] [place] [address] PCP - General Family Medicine 02/10/19 documented as of this encounter
--- OUTSIDE RECORDS SUMMARY | 2024-11-17 05:57 | External Medical Summary | Summary of Care ---
Author Name Unknown Organization [facility] Address [address] [place] [address] Phone [phone] Care Team Providers Care Plant Technician Name Role Phone Ari Atkinson MD Primary Care Provider + Encounter Details Date Type Department Care Team (Latest Contact Info) Description 07/17/2024 4:00 PM EDT - 07/17/2024 11:59 PM EDT Hospital Encounter Radiology [facility] [address] [place] [address] Arrived Discharge Disposition: Home - Self Care Allergies Active Allergy Reactions Criticality Noted Date Comments Egg-Derived Products Low 02/10/2019 Upset stomach, no anaphylaxis Lactose 04/04/2019 Allergic to another ingredient in dairy products Latex 08/30/2023 Other Allergy (See Comments) Medium 04/08/2022 [place] Fragrances, grass Acetaminophen 02/10/2019 Feels makes his pain worse generally. documented as of this encounter (statuses as of 07/18/2024) Medications Medication Sig Dispensed Refills Start Date End Date Status Loratadine 10 MG Oral Tablet (Claritin) Take by mouth 1 Tablet daily as needed for Rhinitis. for allergies. 30 Tablet 11 11/05/2021 Active Advil Allergy Sinus 2-30-200 MG Oral Tablet (Chlorpheniramine-PSE -Ibuprofen) Take by mouth. Active Albuterol Sulfate HFA 108 (90 Base) MCG/ACT Inhalation Aerosol Solution Inhale 2 Puffs by mouth every 6 hours as needed for Cough or Wheezing. 18 g 5 12/15/2022 Active Olopatadine HCl 0.1 % Ophthalmic SolutionIndications:A llergic conjunctivitis, bilateral Instill 1 Drop into both eyes 2 times a day as needed for Itching. In affected eye(s) for allergic eyes 5 mL 03/16/2023 Active Ibuprofen 800 MG Oral Tablet (Motrin)Indications:S potting Take 1 Tablet by mouth 3 times a day as needed for Other (1 hour before activity). with food for pain 30 Tablet 03/16/2023 Active Dicyclomine HCl 10 MG Oral Capsule (Bentyl)Indications:A bdominal pain, generalized Take 1 Capsule by mouth 4 times a day as needed (stomach pain/cramps). For abdominal pain 120 Capsule 12/14/2023 Active Ondansetron HCl 4 MG Oral Tablet (Zofran)Indications:A bdominal pain, generalized Take 1 Tablet by mouth every 8 hours as needed for Nausea. 30 Tablet 12/14/2023 Active Diclofenac Sodium 1 % External Gel (Voltaren)Indications :Multiple joint pain Apply topically to affected area 4 times a day. Apply to knees. 4g. 300 g 12/14/2023 Active Doxycycline Hyclate 100 MG Oral Capsule Take 1 Capsule by mouth in the morning. 30 Capsule 03/07/2024 Active Testosterone 20.25 MG/ACT (1.62%) Transdermal Gel (AndroGel Pump)Indications:Fema le-to-male transgender person PLACE 3 PUMP TOPICALLY ON THE SKIN IN THE MORNING. APPLY TO SHOULDER, OR CHEST OR BACK... 75 g 05/12/2024 Active Clobetasol Propionate 0.05 % External Ointment (Temovate)Indications :Cystic acne Apply topically to affected area 2 times a day. To affected area for up to two weeks. (The red swollen jelly-like acne spot on chest) 15 g 05/14/2024 Active Rizatriptan Benzoate 10 MG Oral Tablet Disintegrating (Maxalt-LIME SPREADER) Take 1 Tablet by mouth as needed for Migraine. May repeat in 2 hours if needed 10 Tablet 05/18/2024 Active busPIRone HCl 15 MG Oral Tablet (Buspar)Indications:G AD (generalized anxiety disorder) TAKE 1 TABLET BY MOUTH IN THE MORNING AND BEFORE BEDTIME 60 Tablet 06/01/2024 Active Famotidine 20 MG Oral Tablet (Pepcid) Take 1 Tablet by mouth in the morning and 1 Tablet before bedtime. 60 Tablet 06/19/2024 Active Pantoprazole Sodium 40 MG Oral Tablet Delayed Release (Protonix)Indications :Gastroesophageal reflux disease without esophagitis Take 1 Tablet by mouth in the morning. 30 Tablet 11 06/20/2024 Active Benzoyl Peroxide 10 % External LiquidIndications:Acn e vulgaris Apply as needed daily to breakouts on face/upper body 148 g 3 07/17/2024 Active Clindamycin Phosphate 1 % External Lotion Apply to face, chest and back twice a day 60 mL 3 07/17/2024 Active documented as of this encounter (statuses as of 07/18/2024) Active Problems Problem Noted Date Diagnosed Date [...] of recurrent major depressive d isorder 02/10/2019 Kaysdn-tj-lhgp transgender person 02/10/2019 Well adult exam 02/10/2019 Overview: 12/11 EMG RUE WNL 09/[address] Luiza Ayala. 04/10 -EMG RUE Normal study. There is no electrodiagnostic evidence of a median or ulnar neuropathy, polyneuropathy, plexopathy, or cervical radiculopathy in the right upper extremity. [facility] Counselor BIW. Case mgmt weekly. No psychiatry. Had bad experiences with [employer] '23 stopped therapy [facility]. Left arm/leg mottled since , worse in cold, inc calf circ on left. Chronic rhinitis 08/11/2015 Depression with anxiety 08/11/2015 Malocclusion 07/21/2014 Deliberate self-cutting 07/21/2014 Generalized anxiety disorder 07/18/2014 Idiopathic scoliosis 05/05/2013 documented as of this encounter (statuses as of 07/18/2024) Resolved Problems Problem Noted Date Diagnosed Date [...] as of this encounter (statuses as of 07/18/2024) Immunizations Name Administration Dates Next Due COVID-19 mRNA, LNP-s, No Pre serve, 2-Dose Series (Beyond Verbal) 09/24/2021,12/28/2020,12/14/2020 DTaP Dipth/Tet/Acell Pertussis (Infanrix), Peds 07/06/2003,09/26/1998,01/07/1998,10/26 [...] Description 08/29/2024 4:40 PM EST Office Visit [facility] [address] [place] [address] Ari Atkinson MD [address] [place] [address] 10/18/2024 1:00 PM EST Office Visit Allergy/Immunology [facility] [address] [place] [address] Bruce Freeman MD [address] [place] [address] 12/05/2024 4:40 PM EDT Office Visit [facility] [address] [place] [address] Ari Atkinson MD [address] [place] [address] 03/06/2025 5:40 PM EDT Office Visit [facility] [address] [place] [address] Ari Atkinson MD [address] [place] [address] 05/15/2025 3:30 PM EDT Office Visit Neurology [facility] [address] [place] [address] Ana Gilbert PA-C [address] [place] [address] 06/05/2025 5:40 PM EDT Office Visit Family [facility] [address] [place] [address] Ari Atkinson MD [address] [place] [address] Health Maintenance Due Date Last Done Comments [...] interpreted or resulted by a [facility] or [facility] contracted radiologist. Latanya Browning PA-C RADIOLO GY ([facility]) documented in this encounter Care Teams Plant Technician Relationship Specialty Start Date End Date Ari Atkinson MD [address] [place] [address] PCP - General Family Medicine 02/10/19 documented as of this encounter
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
--- OUTSIDE RECORDS SUMMARY | 2024-11-17 05:57 | External Medical Summary | Summary of Care ---
Author Name Unknown Organization [facility] Address [address] [place] [address] Phone [phone] Care Team Providers Care Mate Fourth Name Role Phone Ari Miles MD Primary Care Provider + Reason for Visit * Reason Comments eRx-Medication Refill Encounter Details Date Type Department Care Team (Late st Contact Info) Description 05/31/2024 Refill Family Practice [facility] [address] [facility] [place] [address] Ari Miles MD [address] [place] [facility] [address] KERRI (generalized anxiety disorder) Allergies Active Allergy Reactions Criticality Noted Date Comments Egg-Derived Products Low 02/10/2019 Upset stomach, no anaphylaxis Lactose 04/04/2019 Allergic to another ingredient in dairy products Latex 08/30/2023 Other Allergy (See Comments) Medium 04/08/2022 [place] Fragrances, grass Acetaminophen 02/10/2019 Feels makes his pain worse generally. documented as of this encounter (statuses as of 06/01/2024) Medications Medication Sig Dispensed Refills Start Date [...] for Cough or Wheezing. 18 g 5 03/28/202 3 Active Olopatadine HCl 0.1 % Ophthalmic SolutionIndications :Allergic conjunctivitis, bilateral Instill 1 Drop into both eyes 2 times a day as needed for Itching. In affected eye(s) for allergic eyes 5 mL 3 Active Ibuprofen 800 MG Oral Tablet (Motrin)Indications :Spotting Take 1 Tablet by mouth 3 times a day as needed for Other (1 hour before activity). with food for pain 30 Tablet 3 Active Pantoprazole Sodium 40 MG Oral Tablet Delayed Release (Protonix)Indicatio ns:Gastroesophageal reflux disease without esophagitis Take 1 Tablet by mouth in the morning. 30 Tablet 3 Active Benzoyl Peroxide 10 % External LiquidIndications:A cne vulgaris Apply as needed daily to breakouts on face/upper body 148 g 3 3 Active Additional Information Patient not taking.Reported on 05/16/2024 Clindamycin Phosphate 1 % External GelIndications:Acne vulgaris Apply to acne up to twice daily as needed 60 g 1 3 Active Dicyclomine HCl 10 MG Oral [...] 20.25 MG/ACT (1.62%) Transdermal Gel (AndroGel Pump)Indications:Fe [id number]-lcxy transgender person PLACE 3 PUMP TOPICALLY ON [...] Rizatriptan Benzoate 10 MG Oral Tablet Disintegrating (Maxalt-SUPERINTENDENT RENTING MANAGING) Take 1 Tablet by mouth as needed for Migraine. May repeat in 2 hours if needed 10 Tablet 5 4 Active busPIRone HCl 15 MG Oral Tablet (Buspar)Indications :KERRI (generalized anxiety disorder) TAKE 1 TABLET BY MOUTH IN THE MORNING AND BEFORE BEDTIME 60 Tablet 5 4 Active busPIRone HCl 15 MG Oral Tablet (Buspar)Indications :KERRI (generalized anxiety disorder) Take 1 Tablet by mouth in the morning and 1 Tablet before bedtime. 60 Tablet 5 4 06/01/20 24 Discontinued documented as of this encounter (statuses as of 06/01/2024) Active Problems Problem Noted Date Diagnosed Date [...] of recurrent major depressive d isorder 02/10/2019 Frbdra-so-mpki transgender person 02/10/2019 Well adult exam 02/10/2019 Overview: 12/11 EMG RUE WNL 09/[address] Luiza Ayala. 04/10 -EMG RUE Normal study. There is no electrodiagnostic evidence of a median or ulnar neuropathy, polyneuropathy, plexopathy, or cervical radiculopathy in the right upper extremity. [facility] Counselor BIW. Case mgmt weekly. No psychiatry. Had bad experiences with [facility]. '23 stopped therapy [facility]. Left arm/leg mottled since , worse in cold, inc calf circ on left. Chronic rhinitis 08/11/2015 Depression with anxiety 08/11/2015 Malocclusion 07/21/2014 Deliberate self-cutting 07/21/2014 Generalized anxiety disorder 07/18/2014 Idiopathic scoliosis 05/05/2013 documented as of this encounter (statuses as of 06/01/2024) Resolved Problems Problem Noted Date Diagnosed Date [...] as of this encounter (statuses as of 06/01/2024) Immunizations Name Administration Dates Next Due COVID-19 [...] Date Recorded PHQ Adult Total Score 10 04/13/2024 Hunger Vital Sign Answer Date Recorded Within [...] encounter Miscellaneous Notes * Telephone Encounter - Ari Miles MD - 06/01/2024 10:56 PM EDT Signed Prescriptions: Disp Refills busPIRone HCl 15 MG Oral Tablet (Buspar) 60 Tab*5 Sig: TAKE 1 TABLET BY MOUTH IN THE MORNING AND BEFORE BEDTIME Authorizing Provider: ARI MILES * Telephone Encounter - Martha Ochoa [facility] - 06/01/2024 2:58 PM EDTPending Prescriptions: Disp Refills busPIRone HCl 15 MG Oral Tablet [Pharmacy *60 Tab*5 Sig: TAKE 1 TABLET BY MOUTH IN THE MORNING AND BEFORE BEDTIME * Telephone Encounter - Martha Ochoa RP - 06/01/2024 2:57 PM EDT Did you pend patient's preferred pharmacy and medication before forwarding?yes Pharmacy: [id number] [place] [address] [facility] Pending Prescriptions: Disp Refills busPIRone HCl 15 MG Oral Tablet (Buspar) *60 Tab*5 Sig: TAKE 1 TABLET BY MOUTH IN THE MORNING AND BEFORE BEDTIME Last Visit: 05/12/2024 (in office), 11/05/2021 (telemedicine) Next Visit: 06/06/2024 If no future appointments scheduled, and last appointment is greater than a year ago, please schedule patient for a follow-up appointment Last date the medication was ordered: 12/14/23 Is this request for a controlled substance?No Urine Drug Screen:No results found for this or any previous visit. Patient Phone Numbers Labs: Lab Results Component Value Date/Time CREAT 0.9 11/15/2023 08:39 AM CREAT 0.8 10/17/2015 03:08 PM POTASSIUM 4.3 11/15/2023 08:39 AM POTASSIUM 4.1 10/17/2015 03:08 PM TSH 1.95 02/01/2020 12:57 PM ALT 33 11/15/2023 08:39 AM ALT 26 10/17/2015 03:08 PM HGBA1C 4.8 01/26/2022 03:59 PM documented in this encounter Plan of Treatment Upcoming Encounters Date Type Department Care Team (Late st Contact Info) Description 06/06/2024 6:20 PM EDT Office Visit Family Practice [facility] [address] [address] Ari Miles MD [address] [address] 07/17/2024 3:30 PM EDT Office Visit Dermatology, Eli Gutierrez [address] [id number] Latanya Browning PA-C [address] [place] [address] 08/29/2024 4:40 PM EST [facility] [address] [facility] [address] 12/05/2024 4:40 PM EDT Office Visit [facility] [address] [facility] [place] [address] Ari [facility] [address] 05/15/2025 3:30 PM EDT [facility] [address] Ana Gilbert PA-C [address] [place] [address] Health Maintenance Due Date Last Done Comments Hepatitis C Screening 2015 Pap Smear 09/05/2022 09/05/2019 COVID-19 Vaccine ( season) 2024 09/24/2021, 12/28/2020, 12/14/2020 Influenza Vaccine (FLU shot) (#1) 2024 06/15/2023, 06/01/2022, 09/08/2021, Additional history exists Depression Monitoring 04/13/2025 04/13/2024 DTap/Tdap Vaccines (7 - Td or Tdap) [...] as of this encounter Visit Diagnoses Diagnosis KERRI (generalized anxiety disorder) Generalized anxiety disorder documented in this encounter Care Teams Mate Fourth Relationship Specialty Start Date End Date Ari Miles MD [address] [address] PCP - General Family Medicine 02/10/19 documented as of this encounter
[2024-11-17] MEDS: LR 15ML/HR IV SCH (06:06)
[2024-11-17] MEDS: LACTATED RINGER'S 1,000 ML IV SCH (06:29)
[2024-11-17] MEDS ORDERED: ePHEDrine sulfate 50 MG/ML AMP IV PRN (06:59)
[2024-11-17] MEDS ORDERED: ATROPINE SULFATE 0.1 MG/ML 10ML SYR IV PRN (06:59)
[2024-11-17] MEDS ORDERED: ONDANSETRON INJ 2 MG/ML 2 ML VIAL IV PRN ×2 (06:59→09:11)
[2024-11-17] MEDS ORDERED: MIDAZOLAM HCL 1 MG/ML 2ML VIAL ONE (07:01)
[2024-11-17] MEDS ORDERED: fentaNYL citrate PF 100 MCG/2 ML VIAL ONE (07:01)
[2024-11-17] MEDS ORDERED: PROPOFOL IV EMULSION 10 MG/ML 20 ML VIAL IV ONE (07:01)
[2024-11-17] MEDS ORDERED: LIDOCAINE 2% 2 ML VIAL/AMP(20MG/ML) INFIL ONE (07:01)
--- NOTE | 2024-11-17 07:08 | History & Physical Bridge Note ---
Date of Service November 17, 2024 History & Physical Bridge Note I have examined the patient, reviewed the History & Physical and in the interval since the performance of the History & Physical I have noted the following changes of clinical significance: no changes noted
[2024-11-17] MEDS ORDERED: ROCURONIUM BROMIDE 10 MG/ML 5 ML VIAL IV ONE (07:15)
[2024-11-17] MEDS: ceFAZolin 2000MG 2,000 MG/15 ML SYR IV SCH (07:30)
[2024-11-17] MEDS ORDERED: DEXAMETHASONE SOD INJ 4 MG/ML VIAL ONE (08:17)
[2024-11-17] MEDS ORDERED: KETOROLAC 30 MG/ML VIAL ONE (08:17)
[2024-11-17] MEDS ORDERED: ONDANSETRON INJ 2 MG/ML 2 ML VIAL ONE (08:17)
[2024-11-17] MEDS ORDERED: METHYLENE BLUE 0.5% 10 ML VIAL ONE (08:23)
[2024-11-17] MEDS ORDERED: SUGAMMADEX SODIUM 200 MG/2 ML VIAL IV ONE (08:32)
[2024-11-17] MEDS: BUPIVACAINE/EPINEPHRINE 0.5% MPF 1:200,000 30 ML VIAL ONE (08:45)
[2024-11-17] MEDS: FLOSEAL HEMOSTATIC MATRIX 10ML TOP ONE (08:45)
[2024-11-17] MEDS ORDERED: MoRPHine SULFATE 2 MG/ML CARP ONE (08:48)
[2024-11-17] MEDS: fentaNYL citrate PF 100 MCG/2 ML VIAL IV PRN (09:08)
[2024-11-17] MEDS ORDERED: PROMETHAZINE 12.5 MG/50.5 ML BAG IV PRN (09:11)
[2024-11-17] MEDS ORDERED: MAGNESIUM HYDROXIDE SUSP 30 ML UDC PO PRN (09:11)
[2024-11-17] MEDS ORDERED: ZOLPIDEM TARTRATE 5 MG TAB PO PRN (09:11)
[2024-11-17] MEDS ORDERED: oxyCODONE/ACETAMINOPHEN 5mg/325mg TAB PO PRN ×3 (09:11→11:19)
--- NOTE | 2024-11-17 09:21 | Operative Report ---
Post Operative Report Pre & Post Diagnosis Operation Date: 11/17/24 07:00 Pre-Op Diagnosis: Gender Dysphoria Post-Op Diagnosis: Gender Dysphoria I identified the patient and participated in the time-out.: Yes Procedure Operation Date: 11/17/24 07:00 Actual Procedures p Total Laparoscopic Hysterectomy, Bilateral Salpingectomy and Cystoscopy(Not Applicable) - Al Mujica MD Surgeon Al Mujica MD Swatch Folder Roland Thorne Estimated Blood Loss 5 Findings Consistent with Post-Op Diagnosis Normal female escutcheon no lesions in the vagina or vulva. Laparoscopic findings showed uterus is 8 weeks size retroverted. Ureters identified there are no adhesions seen in the pelvics. Both ovaries appear grossly normal. Cystoscopy was unremarkable both ureters were seen with efflux of urine. No lesions seen in the bladder. Fluids EBL; 5ml Urine ; 200 IVF; 1000ml Specimens Uterus =with cervix left and right fallopian tubes Drains none Anesthesia Type General Complications none Indications Irregular bleeding Gender dysphoria Description of Procedure FINDINGS: DESCRIPTION OF PROCEDURE: The patient was prepped and draped in normal sterile fashion in the dorsal lithotomy position. Lovell catheter was placed without difficulty. An Copperfasten uterine manipulator was placed in the uterus to help with colpotomy. Attention was paid to the abdominal part of the procedure where a supraumbilical incision was made and carried down to the fascia. Yaneth was used to grab the fascia. Veress needle was introduced into the abdomen at a 45-degree angle while tenting up the abdomen. Intra-abdominal placement was confirmed with a water-filled syringe. A water drop and suction test was performed. The abdomen was insufflated with CO2 gas. The Veress needle was removed and a 5 mm non bladed trocar was attached to a laparoscope was introduced into the abdomen under direct visualization. This was a non bladed trocar. Once inside the abdomen, laparoscope was repositioned. Inspection of the abdomen shows the findings as dictated above. Three more accessory ports were placed, two 5 mm accessory ports were placed in the lower abdomen on the contralateral side, in addition, an 11 mm trocar was placed on the left upper quadrant. General inspection of the abdomen and pelvis was performed as dictated above. There was an adhesion of omentum to the umbilicus. This omentum was examined. There was no bowel in the omentum, so the LigaSure was passed through one of the contralateral port and dissection of the omentum from the abdominal wall was performed. There was good hemostasis. Left and right fallopian tubes, the ureters, uterosacrals, bowels were examined and identified. LigaSure was passed through the left accessory port. The fallopian tube was identified and grabbed 4 cm from the cornua of the uterus with the LigaSure and transected. This was followed by opening of the left anterior leaf of the broad ligament. This allowed for fenestration of the posterior left broad ligament. The mid-section of the left fallopian tube, utero-ovarian and meso-ovarian pe dicles were transected as well. Same procedure was performed on the contralateral side. The anterior broad ligament dissection was carried to the mid-section of the vesicouterine peritoneum over the bladder using the Harmonic scalpel. Same procedure was carried out on the contralateral side. The posterior broad ligament peritoneum was carefully dissected also from both sides over the uterosacral arch in order to displace the ureters laterally. Using traction and countertraction, the [place] retractor and irrigation probe was used to further dissect the bladder off the lower segment of the uterus. Bladder pillars and pubovesical fascia was dissected as well. Harmonic scalpel was used to obtain hemostasis where needed. Uterine manipulator was now palpable over the vaginal tissue. The right uterine pedicles were skeletonized and coagulated with the LigaSure. Good hemostasis was obtained. Same procedure was performed on the contralateral side. Cardinal ligaments were transected on both sides. Once good hemostasis was obtained, colpotomy was performed using the LigaSure hook from both sides. Uterus was removed through the vagina while still attached to the uterine manipulator. The bulb was attached to the uterine manipulator was reinserted into the vagina to establish pneumoperitoneum. With a grasper, the remaining section of the left ovary and tube were positioned anteromedially. The left fallopian tube is grabbed with ligature and transected. The transection is done close to the fallopian tube in order to preserve the ovarian vascular integrity. The left fallopian tube is removed through the 11 mm port leaving the left ovary intact. Same procedures performed on the right adnexa. The right fallopian tube is also removed once again leaving the right ovary behind.Right fallopian tube specimen is also removed through the 11 mm port. Both fallopian tube specimens sent to pathology for pathological analysis EndoStitch closure device was passed through the 11 mm port on the left. Using the [place] grasper for traction, colpotomy closure was performed. The uterosacral ligaments incorporated into the closure in order to decrease the risk of prolapse. Lapro ties were used with the EndoStitch. The 11-mm trocar site was closed with a Aston-Lazo under direct visualization. Attention was paid to the cystoscopy part of the procedure where a cystoscope was introduced into the bladder. There are no sutures seen in the bladder. There were no gross blood seen in the bladder as well. The bubble sign is noted showing the bladder was a close cavity. Both ureters were seen and there was efflux from both uterus. The skin incisions are closed with Dermabond, except for the 11-mm trocar site, which was closed with 4-0 Monocryl. The patient was returned to recovery in stable condition. Inspection of the vagina shows the vaginal cuff was intact. All instruments were removed from the vagina and the bladder and accounted for x2. I attest to the content of the Intraoperative Record and any orders documented therein. Any exceptions are noted below. Swatch Folder was necessary for retraction and manipulation of instruments in order to provide for a safe operation
[2024-11-17] MEDS: HYDROmorphone INJ 1 MG/ML SYRINGE ONE (09:28)
[2024-11-17] MEDS: HYDROmorphone INJ 0.5 MG/0.5 ML SYR IV PRN (09:50)
--- NOTE | 2024-11-17 11:31 | Anesthesiology Progress Note ---
Date of Service November 17, 2024 Anesthesia Post Procedure Vital Signs Vital Signs: Temp Pulse Pulse Resp BP Pulse Ox O2 Del Method 11/17/24 10:40 36.4 C L 90 12 135/76 98 Nasal Cannula 11/17/24 10:30 86 15 136/76 99 Nasal Cannula 11/17/24 10:20 98 H 11 L 152/83 H 98 Nasal Cannula 11/17/24 10:10 91 H 13 146/75 H 99 Nasal Cannula 11/17/24 10:00 92 H 13 136/73 99 Nasal Cannula 11/17/24 09:50 88 21 140/88 100 Nasal Cannula 11/17/24 09:40 87 15 148/95 H 99 Nasal Cannula 11/17/24 09:30 96 H 16 156/101 H 99 Nasal Cannula 11/17/24 09:20 94 H 12 146/94 H 100 Nasal Cannula 11/17/24 09:10 92 H 13 133/90 93 Room Air 11/17/24 09:00 36.3 C L 88 15 132/85 100 Oxymask 11/17/24 06:13 36.8 C 86 20 143/83 H 97 Room Air O2 Flow Rate 11/17/24 10:40 2 11/17/24 10:30 2 11/17/24 10:20 2 11/17/24 10:10 2 11/17/24 10:00 2 11/17/24 09:50 2 11/17/24 09:40 2 11/17/24 09:30 2 11/17/24 09:20 2 11/17/24 09:10 11/17/24 09:00 4 11/17/24 06:13 Pain Intensity Abdomen: Pain Intensity: 4 Transfer of Care Handoff Completed per policy Notes Mental Status: alert / awake / arousable Patient Amnestic to Procedure: Yes Nausea / Vomiting: adequately controlled Pain: adequately controlled Airway Patency, RR, SpO2: stable & adequate BP & HR: stable & adequate Hydration State: stable & adequate Anesthetic Complications: no major complications apparent
[2024-11-17] MEDS: PROMETHAZINE HCL 6.25 MG in SODIUM CHLORIDE 0.9% 50 ML IV PRN (12:37)
[2024-11-17] MEDS ORDERED: HYDROmorphone PCA 30 MG/30 ML IV PRN (12:42)
[2024-11-17] MEDS ORDERED: NALOXONE HCL 0.4 MG/1 ML VIAL/CARP IV PRN ×2 (12:42→14:38)
[2024-11-17] MEDS: KETOROLAC 30 MG/ML VIAL IV PRN (13:21)
[2024-11-17] MEDS ORDERED: MoRPHine SULFATE PCA 30 MG/30 ML IV PRN (14:38)
[2024-11-17] MEDS: SIMETHICONE 80 MG CHEW PO PRN (16:17)
[2024-11-17] MEDS ORDERED: Nursing to Pharmacy Communication SCH (16:45)
[2024-11-17] MEDS: oxyCODONE HCL IR 5 MG TAB (IMMEDIATE RELEASE) PO PRN (17:40)
[2024-11-17] MEDS: DOCUSATE SODIUM 100 MG CAP PO SCH (20:40)
[2024-11-17] MEDS ORDERED: busPIRone 7.5 MG TAB PO SCH (21:00)
[2024-11-17] MEDS: IBUPROFEN 600 MG TAB PO PRN (22:55)
[2024-11-18 07:40] VITALS: BP 119/69; RESP 16; TEMP 97.7; O2SAT 99
[2024-11-18 07:49] LABS: Basophils # (auto) 0.03 K/uL (0.00-0.20); Basophils % (auto) 0.3 %; Eosinophils # (auto) 0.02 K/uL (0.00-0.50); Eosinophils % (auto) 0.2 %; Hematocrit (blood only) 36.5 % (37.0-47.0); Hemoglobin 12.6 g/dl (12.0-16.0); Immature Granulocytes # (auto) 0.02 K/uL (0.01-0.20); Immature Granulocytes % (auto) 0.2 %; Lymphocytes # (auto) 2.34 K/uL (1.20-3.40); Lymphocytes % (auto) 21.1 %; Mean Corpuscular Hemoglobin 30.1 pg (25.0-34.0); Mean Corpuscular Hgb Conc 34.5 g/dL (32.0-36.0); Mean Corpuscular Volume 87.3 fL (80.0-100.0); Mean Platelet Volume 10.7 fL (9.4-12.4); Monocytes % (auto) 6.3 %; Neutrophils # (auto) 7.99 K/uL (1.40-6.50); Neutrophils % (auto) 71.9 %; Platelet Count 163 K/uL (130-400); RDW Coefficient of Variation 12.2 % (11.5-14.5); RDW Standard Deviation 39.4 fL (36.4-46.3); Red Blood Count 4.18 M/uL (4.20-5.40)
[2024-11-18 07:59] LABS: BUN Creatinine Ratio 17.7 (10-20); Calcium 8.4 mg/dl (8.6-10.3); Creatinine Clr Calc Pharmacy 92.4 ml/min; Potassium 4.1 mmol/L (3.5-5.1)
--- NOTE | 2024-11-18 10:14 | Obstetrical Progress Note ---
Date of Service November 18, 2024 Assessment & Plan (1) Postop check: Pt doing well No complaints d/c home with instruction Physical Exam Constitutional WD/WN, vitals as above Eyes PERRL, conjunctivae normal, anicteric sclerae ENMT external ear and nose normal, oropharynx normal Neck trachea midline, no thyromegaly Respiratory normal respiratory effort, lungs clear to auscultation Cardiovascular RRR, no murmur, no edema Chest (Breasts) normal inspection/palpation of breasts Gastrointestinal (Abdomen) normal bowel sounds, soft, nontender, no hepatosplenomegaly Musculoskeletal no cyanosis or clubbing, extremities motor strength 5/5 Skin + incision (Incision clean,dry and intact) Neurologic patellar DTR's 2+ bilat, sensation intact Psychiatric A+Ox3, euthymic affect Genitourinary no vaginal lesions, no adnexal mass Lymphatic no cervical or axillary lymphadenopathy Results & Data Vital Signs (Past 12 Hours) Vital Signs Temp Pulse Pulse Resp BP Pulse Ox O2 Del Method 11/18/24 07:06 36.5 C 72 16 119/69 99 Room Air 11/18/24 04:35 36.7 C 70 18 112/66 100 Room Air 11/17/24 23:30 36.7 C 76 18 115/61 97 Room Air
--- NOTE | 2024-11-18 10:21 | Discharge Summary ---
Date of Service November 18, 2024 Admission HPI Per Admitting Provider Patient is a 29-year-old gender dysphoria patient. Underwent total laparoscopic hysterectomy with bilateral salpingectomy on 11/17/2023. Surgery was unremarkable. Details of surgery and the surgical notes. This morning patient is doing well and is being discharged home in stable condition. Discharge Data Procedures Performed Operation Date: 11/17/24 07:00 Actual Procedures p Total Laparoscopic Hysterectomy, Bilateral Salpingectomy and (Not Applicable) - Al Mujica MD s Cystoscopy(Not Applicable) - Al Mujica MD
--- OUTSIDE RECORDS SUMMARY | 2024-11-18 10:27 | External Medical Summary | Summary of Care ---
Author Name Unknown Organization [facility] Address [address] [place] [address] Phone [phone] Care Team Providers Care River Rat Name Role Phone Ari Atkinson MD Primary Care Provider + Encounter Details Date Type Department Care Team (Late st Contact Info) Description 11/17/2024 Result Scan Unspecified Department Al Mujica MD [address] [place] [address] <No scans attached> Allergies Active Allergy Reactions Criticality Noted Date Comments Egg-Derived Products Low 02/10/2019 Upset stomach, no anaphylaxis Lactose 04/04/2019 Allergic to another ingredient in dairy products Latex 08/30/2023 Other Allergy (See Comments) Medium 04/08/2022 [place] Fragrances, grass Acetaminophen 02/10/2019 Feels makes his pain worse generally. documented as of this encounter (statuses as of 11/17/2024) Medications Loratadine 10 MG Oral Tablet (Claritin) [...] Rizatriptan Benzoate 10 MG Oral Tablet Disintegrating (Maxalt-ROUTER TENDER) Take 1 Tablet by mouth as needed [...] 20.25 MG/ACT (1.62%) Transdermal Gel (AndroGel Pump)Indications:F [id number]-rz-[id number] transgender person PLACE 2 PUMP TOPICALLY ON [...] as of this encounter (statuses as of 11/17/2024) Active Problems Problem Noted Date Diagnosed Date [...] of recurrent major depressive d isorder 02/10/2019 Jpwtqv-[id number] transgender person 02/10/2019 Well adult exam 02/10/2019 Overview (12/08/2023): 12/11 EMG RUE WNL 09/[address] Luiza Ayala. 04/10 -EMG RUE Normal study. There is no electrodiagnostic evidence of a median or ulnar neuropathy, polyneuropathy, plexopathy, or cervical radiculopathy in the right upper extremity. 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 No psychiatry. Had bad experiences with [facility]. '23 stopped therapy [facility]. Left arm/leg mottled since , worse in cold, inc calf circ on left. Chronic rhinitis 08/11/2015 Depression with anxiety 08/11/2015 Malocclusion 07/21/2014 Deliberate self-cutting 07/21/2014 Generalized anxiety disorder 07/18/2014 Idiopathic scoliosis 05/05/2013 documented as of this encounter (statuses as of 11/17/2024) Resolved Problems Problem Noted Date Diagnosed Date [...] as of this encounter (statuses as of 11/17/2024) Immunizations Name Administration Dates Next Due COVID-19 mRNA, LNP-s, No Pre serve, 2-Dose Series ([employer]avan) 09/24/2021,12/28/2020,12/14/2020 COVID-19, MRNA-LNP, PF, 30 M CG/0.3 mL, 12 YRS AND ABOVE, IM (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 Not on file Not on f ile Not on file documented as of this encounter Plan of Treatment Upcoming Encounters Date Type Department Care Team (Late st Contact Info) Description 11/29/2024 4:00 PM EDT Office Visit [facility] [address] [place] [address] Paola Talley PA-C [address] [place] [address] 12/08/2024 11:20 AM EDT Office Visit [facility] [address] [facility] [place] [address] Ari Atkinson MD [address] [facility] [place] [address] 12/28/2024 11:45 AM EDT Office Visit Gynecology/Obstetrics [facility] [address] [facility] [place] [address] Al Mujica MD [address] [facility] [address] [address] 01/17/2025 2:50 PM EDT Office Visit Dermatology, Eli Gutierrez [address] [address] Latanya Browning PA-C [address] [place] [address] 03/06/2025 5:40 PM EDT Office Visit [facility] [address] [facility] [place] [place] [address] Ari Atkinson MD [address] [facility] [place] [address] 03/27/2025 4:30 PM EDT Office Visit Neurology [facility] [address] [place] [address] Ana Gilbert PA-C [address] [address] 06/05/2025 5:40 PM EDT Office Visit [facility] [address] [place] [address] Ari Atkinson MD [address] [address] 09/04/2025 5:40 PM EST [facility] Visit [facility] [address] [place] [address] Ari Atkinson MD [address] [place] [address] Health Maintenance Due Date Last Done Comments [...] Procedure Name Priority Date/Time Associated Diagnosis Comments OUTSIDE LAB RESULTS 11/17/2024 documented in this encounter Results * OUTSIDE LAB RESULTS (11/17/2024) 11/17/2024 us Al Mujica MD LABORATORY Final Result documented in this encounter Care Teams River Rat Relationship Specialty Start Date End Date Ari Atkinson MD [address] [place] [address] PCP - General Family Medicine 02/10/19 documented as of this encounter
[2024-11-18 10:39] VITALS: PULSE 70
[2024-11-18] MEDS: PANTOprazole 40 MG TAB PO SCH (11:27)
== END 2024-11-18 13:08 | disposition home or self-care (01) ==
LOC: 4E1 05:26 → ASU 05:26